=== PATIENT | female | born 1980 | race Hispanic/Latino ===

== ENCOUNTER 2022-01-05 22:58 | Emergency (ER) | payer SELFPAY ==
--- OUTSIDE RECORDS SUMMARY | 2022-01-05 23:04 | XMS REPORT | Continuity of Care Document ---
:[address] [facility] t Address [address] [place] [address] Care Team Providers Name Role Phone LIZBETH HOLLOWAY Primary Care Physician Unavailable NUZHAT LEO Attending Clinician Unavailable Nuzhat Leo DO Attending Clinician CARLITA BERNABE Attending Clinician Unavailable Carlita Bernabe DO Attending Clinician MIL CASTRO Attending Clinician Unavailable Mil Chambers Attending Clinician Zack Jensen Attending Clinician ZACK CHAPMAN Attending Clinician Unavailable Heaven Weinstein Attending Clinician HEAVEN ENRIQUEZ Attending Clinician Unavailable Doctor Unassigned, [place] Attending Clinician Unavailable Aminata Lujan Attending Clinician NUZHAT LEO Admitting Clinician Unavailable MIL CASTRO Admitting Clinician Unavailable Payers Payer Name Policy Type Policy Number Effective Date Expiration Date S edmund R [id number] 2021 00:00:00 MEDICAID PENDING PENDING 2019 00:00:00 Problems Condition Condition Condition Status Onset Resolution Last Treating Co mments Source Name Details Category Date Date Treatment Clinician Date Obesity Obesity Disease Active Univers (BMI (BMI 1-27 ity of 30-39.9) 30-39.9) 00:00: [place] 00 Medical Branch Allergies, Adverse Reactions, Alerts Allergy Allergy Status Severity Reaction(s) Onset Inactive Treating Comm ents Source Name Type Date Date Clinician Codeine Propensi Active Unknown - 2018-03 Univ ers ty to See comments 2-26 ity of adverse 00:00: [place] reaction 00 Medical s Branch CODEINE DRUG Active Unknown-Cmnt 2018-03 Uni vers INGREDI 2-26 ity of 00:00: [place] 00 Medical Branch Sulfa Propensi Active Anaphylaxis Uni vers (Sulfona ty to 4-26 ity of mide adverse 00:00: [place] Antibiot reaction 00 Medica l ics) s Branch SULFA Drug Active Anaphylaxis Unive rs (SULFONA Class 4-26 ity of MIDE 00:00: [place] ANTIBIOT 00 Medical ICS) Branch Sulfa Propensi Active Anaphylaxis Uni vers (Sulfona ty to 4-26 ity of mide adverse 00:00: [place] Antibiot reaction 00 Medica l ics) s Branch Social History Social Habit Start Date Stop Date Quantity Comments Source Exposure to 2021-11-19 2021-11-29 Not sure [facility] SARS-CoV-2 (event) 00:00:00 09:24:00 Medica l Branch Sex [birth year] [facility] 00:00:00 00:00:00 Medical Branch Smoking Status Start Date Stop Date Source Tobacco smoking consumption [facility] Medical unknown Branch Medications Ordered Filled Start Stop Current Ordering Indication Dosage Frequency Signature Comments Components Source Medication Medication Date Date Medication? Clinician (SIG) Name Name methylPREDN Yes [id number] Take by Univers ISolone 11-29 9107 mouth ity of (MEDROL, 00:00: SEE-INSTRU [place] as ODILON,) 4 mg 00 CTIONS. Medica l tablets follow Branch package directions naproxen Yes [id number] 550mg Take 1 Univers sodium 11-2907 tablet by ity of (ANAPROX 00:00: mouth in [place] DS) 550 mg 00 the Medical tablet morning Branch and 1 tablet in the evening. Take with meals. lisinopriL 2022-0 2022- No 10mg 10 mg, Univ ers (PRINIVIL,Z 11-03 Oral, ity of ESTRIL) 12:45: 11:35 ONCE, 1 [place] tablet 10 00 :00 dose, On Medica l mg Sun Branch 11/03/21 at 0745, Routine FLUTICASONE 2021- No Use in Uni vers PROPIONATE 11-03 each ity of (FLONASE 06:33: 00:[place]ril[place] NASAL) 07 :00 Medical Branch lisinopriL 2021- Yes [id number] 10mg Take 1 Univers 10 mg 11-03 tablet by ity of tablet 00:00: 04:59 mouth at [place] 00 :00 bedtime Medical for 30 Branch days. lisinopriL 2021- Yes [id number] 10mg Take 1 Univers 10 mg 11-03 tablet by ity of tablet 00:00: 04:59 [facility] [place] [facility] iopamidol 2021- No [id number] 100mL 100 mL, Univers (ISOVUE 06-21-08 Intravenou ity o f 370-500 mL) 07:15: 06:07 s, ONCE, 1 [place] injection 00 :00 dose, On Medica l 100 mL Thu06/21/21 Branch at 0215, Routine penicillin 2021- No 1.210 1.2 Unive rs g 06-21 04-08 Million ity of benzathine 06:30: 06:18 [place], [place] (BICILLIN 00 :00 Intramuscu Medi kleber L-A) lar, ONCE, Branch injection 1 dose, On 1.2 Million Thu06/21/21 Units at 0130, DIANE
Re ason for Anti-Infec tive: Documented Infection< br>Documen jameson Infection Site: Skin / Soft Tissue
Duration of Therapy: 10 days NaCl 0.9% 2021- No 1000mL at 999 Uni vers (NS) bolus 06-21 04-08 mL/hr, ity of infusion 06:30: 07:29 1,000 mL, [place] as 1,000 mL 00 :00 IV Medical Infusion, Branch ONCE, 1 dose, On Thu06/21/21 at 0130, DIANE dexamethaso No 10mg 10 mg, Uni vers ne sod phos 06-21 Slow IV ity of PF 06:30: 05:31 Push, [place] injection 00 :00 ONCE, 1 Medical 10 mg dose, On Branch Thu06/21/21 at 0130, 1 mL ketorolac 2021- No 30mg 30 mg, Unive rs (TORADOL) 06-21 Slow IV ity of injection 06:30: 05:31 Push, [place] 30 mg 00 :00 ONCE, 1 Medical dose, On Branch Thu06/21/21 at 0130, Routine
construction crew member approving Restricted medication : MIL CASTRO maalox:diph No 15mL 15 mL, Uni vers enhydrAMINE 06-21 Oral, ity of :lidocaine 06:30: 05:32 ONCE, 1 [place] as 2 % viscous 00 :00 dose, On [facility] kleber 1:1:1 Thu06/21/21 Branch (FIRST-MOUT at 0130, [facility]) Routine oral suspension 15 mL cefTRIAXone No 1000mg 1,000 mg, Univers (ROCEPHIN) 08-02 IV ity of 1,000 mg in 23:30: 23:11 [place], [place] NaCl 0.9% 00 :00 ONCE, 1 Medical (NS) 50 mL dose, [facility] Bran ch MINI-BAG 08/02/20 at 1830, 50 mL
Reas on for Anti-Infec tive: Empiric Therapy for Suspected Infection< br>Empiric Therapy Site: Urine
D uration of therapy: 72 hours NaCl 0.9% 2020- No 1000mL at 999 Uni vers (NS) bolus 5- 05-20 mL/hr, ity of infusion 20:45: 23:20 1,000 mL, [place] as 1,000 mL 00 :00 IV Medical Infusion, Branch ONCE, 1 dose, [place] 08/02/20 at 1545, STAT cephALEXin 2020- No [id number] 500mg Take 1 Univers (KEFLEX) 08-02 capsule by ity of 500 mg 00:00: 04:59 mouth 3 [place] capsule 00 :00 (three) Medical times Branch daily for 7 days. butalbital- 2019-03 Yes [id number] 1{tbl} Take 1 Univers acetaminoph 2-18 tablet by ity of en-caff 00:00: mouth [place] 50-325-40 00 every 6 Medical mg tablet (six) Branch hours as needed for Pain (scale 7-10). butalbital- 2019-03 Yes [id number] 1{tbl} Take 1 Univers acetaminoph 2-18 tablet by ity of en-caff 00:00: mouth [place] 50-325-40 00 every 6 Medical mg tablet (six) Branch hours as needed for Pain (scale 7-10). butalbital- 2019-03 Yes [id number] 1{tbl} Take 1 Univers acetaminoph 2-18 tablet by ity of en-caff 00:00: mouth [place] 50-325-40 00 every 6 Medical mg tablet (six) Branch hours as needed for Pain (scale 7-10). butalbital- 2019-03 No [id number] 1{tbl} Take 1 Univers acetaminoph 2-18 08-21 tablet by it y of en-caff 00:00: 00:00 mouth [place] 50-325-40 00 :00 every 6 Medical mg tablet (six) Branch hours as needed for Pain (scale 7-10). diphenhydrA 2019-03 2020- No [id number] 25mg 25 mg, Univers MINE 0-12 10-12 Slow IV ity of (BENADRYL) 16:00: 15:00 Push, [place] injection 00 :00 ONCE, 1 Medical 25 mg dose, [facility] Branch 12/26/19 at 1100, STAT metoclopram 2019-03 2020- No [id number] 10mg 10 mg, Univers dash HCl 0-12 10-12 Slow IV ity of (REGLAN) 16:00: 14:59 Push, [place] injection 00 :00 ONCE, 1 Medical 10 mg dose, [facility] Branch 12/26/19 at 1100, DIANE lisinopriL 2019-03 Yes [id number] 10mg Take 1 U nivers 10 mg 0-12 tablet by ity of tablet 00:00: mouth at [place] 00 bedtime. Medical Branch lisinopriL 2019-03 Yes [id number] 10mg Take 1 U nivers 10 mg 0-12 tablet by ity of tablet 00:00: mouth at [place] 00 bedtime. Medical Branch lisinopriL 2019-03 Yes [id number] 10mg Take 1 U nivers 10 mg 0-12 tablet by ity of tablet 00:00: mouth at [place] 00 bedtime. Medical Branch lisinopriL 2019-03 Yes [id number] 10mg Take 1 U nivers 10 mg 0-12 tablet by ity of tablet 00:00: mouth at [place] 00 bedtime. Medical Branch lisinopriL 2019-03- No [id number] 10mg Take 1 Univers 10 mg 0-12 08-21 tablet by ity of tablet 00:00: 00:00 mouth at [place] 00 :00 bedtime. [facility] Branch ondansetron 2019- No 4mg 4 mg, Slow Univers (ZOFRAN 10-12 IV Push, ity of (PF)) 03:00: 01:47 ONCE, 1 [place] injection 4 00 :00 dose, Thu Med ical mg 10/12/19 at Branch 2200, DIANE cefTRIAXone No 1000mg 1,000 mg, Univers (ROCEPHIN) 10-12 IV ity of 1,000 mg in 02:15: 01:55 [place], [place] NaCl 0.9% 00 :00 ONCE, 1 Medical (NS) 50 mL dose, [facility] ch MINI-BAG 10/12/19 at 2115, 50 mL
Reas on for Anti-Infec tive: Documented Infection< br>Documen jameson Infection Site: Urine
D uration of Therapy: Other (see Comments) FENTanyl PF 2019- No 50ug 50 mcg, Un haley (SUBLIMAZE 10-12 Slow IV ity o f (PF)) 02:15: 01:24 Push, [place] injection 00 :00 ONCE, 1 Medical 50 mcg dose, [facility] 10/12/19 at 2115, Routine ketorolac 2019- No 15mg 15 mg, Unive rs (TORADOL) 10-12 Slow IV ity of injection 00:15: 23:27 Push, [place] 15 mg 00 :00 ONCE, 1 Medical dose, [facility] 10/12/19 at 1915, DIANE
Fa culty member approving Restricted medication : HEAVEN ENRIQUEZ tamsulosin 2020-0 Yes [id number] .4mg Take 1 U nivers 0.4 mg 24 7-29 capsule by ity of hr capsule 00:00: mouth at [place] 00 bedtime. Medical Branch traMADol 50 2020-0 Yes [id number] 50mg Take 1 Univ ers mg tablet 7-29 tablet by ity o f 00:00: mouth [place] 00 every 6 Medical (six) Branch hours as needed for Pain (scale 7-10). Indication s: acute pain ondansetron 2020-0 Yes [id number] 4mg Take 1 Univers (ZOFRAN 7-29 tablet by ity of ODT) 4 mg 00:00: mouth [place] disintegrat 00 every 8 Medic al ing tablet (eight) Branch hours as needed for Nausea and Vomiting (N/V). naproxen 2020-0 Yes [id number] 500mg Take 1 Un haley 500 mg 7-29 tablet by ity of tablet 00:00: mouth 2 [place] 00 (two) Medical times Branch daily with meals. tamsulosin 2020-0 Yes [id number] .4mg Take 1 U nivers 0.4 mg 24 7-29 capsule by ity of hr capsule 00:00: mouth at [place] 00 bedtime. Medical Branch traMADol 50 2020-0 Yes [id number] 50mg Take 1 Univ ers mg tablet 7-29 tablet by ity o f 00:00: mouth [place] 00 every 6 Medical (six) Branch hours as needed for Pain (scale 7-10). Indication s: acute pain ondansetron 2020-0 Yes [id number] 4mg Take 1 Univers (ZOFRAN 7-29 tablet by ity of ODT) 4 mg 00:00: mouth [place] disintegrat 00 every 8 Medic al ing tablet (eight) Branch hours as needed for Nausea and Vomiting (N/V). naproxen 2020-0 Yes [id number] 500mg Take 1 Un haley 500 mg 7-29 tablet by ity of tablet 00:00: mouth 2 [place] 00 (two) Medical times Branch daily with meals. tamsulosin 2020-0 Yes [id number] .4mg Take 1 U nivers 0.4 mg 24 7-29 capsule by ity of hr capsule 00:00: mouth at [place] 00 bedtime. Medical Branch traMADol 50 2020-0 Yes [id number] 50mg Take 1 Univ ers mg tablet 7-29 tablet by ity o f 00:00: mouth [place] 00 every 6 Medical (six) Branch hours as needed for Pain (scale 7-10). Indication s: acute pain ondansetron 2020-0 Yes [id number] 4mg Take 1 Univers (ZOFRAN 7-29 tablet by ity of ODT) 4 mg 00:00: mouth [place] disintegrat 00 every 8 Medic al ing tablet (eight) Branch hours as needed for Nausea and Vomiting (N/V). naproxen 2020-0 Yes [id number] 500mg Take 1 Un haley 500 mg 7-29 tablet by ity of tablet 00:00: mouth 2 [place] 00 (two) Medical times Branch daily with meals. tamsulosin 2020-0 Yes [id number] .4mg Take 1 U nivers 0.4 mg 24 7-29 capsule by ity of hr capsule 00:00: mouth at [place] 00 bedtime. Medical Branch traMADol 50 2020-0 Yes [id number] 50mg Take 1 Univ ers mg tablet 7-29 tablet by ity o f 00:00: mouth [place] 00 every 6 Medical (six) Branch hours as needed for Pain (scale 7-10). Indication s: acute pain ondansetron 2020-0 Yes [id number] 4mg Take 1 Univers (ZOFRAN 7-29 tablet by ity of ODT) 4 mg 00:00: mouth [place] disintegrat 00 every 8 Medic al ing tablet (eight) Branch hours as needed for Nausea and Vomiting (N/V). naproxen 2020-0 Yes [id number] 500mg Take 1 Un haley 500 mg 7-29 tablet by ity of tablet 00:00: mouth 2 [place] 00 (two) Medical times Branch daily with meals. tamsulosin 2020-0 Yes [id number] .4mg Take 1 U nivers 0.4 mg 24 7-29 capsule by ity of hr capsule 00:00: mouth at [place] 00 bedtime. Medical Branch traMADol 50 2020-0 Yes [id number] 50mg Take 1 Univ ers mg tablet 7-29 tablet by ity o f 00:00: mouth [place] 00 every 6 Medical (six) Branch hours as needed for Pain (scale 7-10). Indication s: acute pain ondansetron 2020-0 Yes [id number] 4mg Take 1 Univers (ZOFRAN 7-29 tablet by ity of ODT) 4 mg 00:00: mouth [place] disintegrat 00 every 8 Medic al ing tablet (eight) Branch hours as needed for Nausea and Vomiting (N/V). naproxen 2019- Yes [id number] 500mg Take 1 Un haley 500 mg - tablet by ity of tablet 00:00: mouth 2 [place] 00 (two) Medical times Branch daily with meals. tamsulosin 2021- No [id number] .4mg Take 1 Univers 0.4 mg 24 10-11 capsule by ity of hr capsule 00:00: 00:00 mouth at [place] 00 :00 bedtime. Medical Branch traMADol 50 2019-2021- No [id number] 50mg Take 1 Uni vers mg tablet 10-11 tablet by ity of 00:00: 00:00 mouth [place] 00 :00 every 6 Medical (six) Branch hours as needed for Pain (scale 7-10). Indication s: acute pain ondansetron 2019-2021- No [id number] 4mg Take 1 Univers (ZOFRAN 10-11- tablet by ity of ODT) 4 mg 00:00: 00:00 mouth [place] disintegrat 00 :00 every 8 Medic al ing tablet (eight) Branch hours as needed for Nausea and Vomiting (N/V). naproxen 2021- No [id number] 500mg Take 1 U nivers 500 mg 10-11 tablet by ity of tablet 00:00: 00:00 mouth 2 [place] 00 :00 (two) Medical times Branch daily with meals. cephALEXin 2019- No [id number] 500mg Take 1 Univers 500 mg 10-11- capsule by ity of capsule 00:00: 04:59 mouth 4 [place] 00 :00 (four) Medical times Branch daily for 7 days. amoxicillin 2019-2019- No [id number] 875mg Take 1 Univers 875 mg 07-14 tablet by ity of tablet 00:00: 04:59 mouth 2 [place] 00 :00 (two) Medical times Branch daily for 10 days. predniSONE 2019- 2020- No [id number] 20mg Take 1 Univers 20 mg 07-14 [id number] tablet by ity of tablet 00:00: 04:59 mouth 2 [place] 00 :00 (two) Medical times Branch daily for 5 days. traMADol 2018-03 Yes [id number] 50mg Take 1 Univers (ULTRAM) 50 2-26 [id number] tablet by i ty of mg tablet 00:00: mouth [place] 00 every 8 Medical (eight) Branch hours as needed for Pain (scale 4-6). cyclobenzap 2018-03 Yes [id number] 5mg Take 1 Univers rine 5 mg 2-26 [id number] tablet by ity of tablet 00:00: mouth 3 [place] 00 (three) Medical times Branch daily. traMADol 2018-03 Yes [id number] 50mg Take 1 Univers (ULTRAM) 50 2-26 [id number] tablet by i ty of mg tablet 00:00: mouth [place] 00 every 8 Medical (eight) Branch hours as needed for Pain (scale 4-6). cyclobenzap 2018-03 Yes [id number] 5mg Take 1 Univers rine 5 mg 2-26 [id number] tablet by ity of tablet 00:00: mouth 3 [place] 00 (three) Medical times Branch daily. traMADol 2018-03 Yes [id number] 50mg Take 1 Univers (ULTRAM) 50 2-26 [id number] tablet by i ty of mg tablet 00:00: mouth [place] 00 every 8 Medical (eight) Branch hours as needed for Pain (scale 4-6). cyclobenzap 2018-03 Yes [id number] 5mg Take 1 Univers rine 5 mg 2-26 [id number] tablet by ity of tablet 00:00: mouth 3 00 (three) Medical times Branch daily. traMADol 2018-03 Yes [id number] 50mg Take 1 Univers (ULTRAM) 50 2-26 [id number] tablet by i ty of mg tablet 00:00: mouth [place] 00 every 8 Medical (eight) Branch hours as needed for Pain (scale 4-6). cyclobenzap 2018-03 Yes [id number] 5mg Take 1 Univers rine 5 mg 2-26 [id number] tablet by ity of tablet 00:00: mouth 3 [place] 00 (three) Medical times Branch daily. traMADol 2018-03 Yes [id number] 50mg Take 1 Univers (ULTRAM) 50 2-26 [id number] tablet by i ty of mg tablet 00:00: mouth [place] 00 every 8 Medical (eight) Branch hours as needed for Pain (scale 4-6). cyclobenzap 2018-03 Yes [id number] 5mg Take 1 Univers rine 5 mg 2-26 [id number] tablet by ity of tablet 00:00: mouth 3 [place] 00 (three) Medical times Branch daily. traMADol 2018-03 Yes [id number] 50mg Take 1 Univers (ULTRAM) 50 2-26 [id number] tablet by i ty of mg tablet 00:00: mouth [place] 00 every 8 Medical (eight) Branch hours as needed for Pain (scale 4-6). cyclobenzap 2018-03 Yes [id number] 5mg Take 1 Univers rine 5 mg 2-26 [id number] tablet by ity of tablet 00:00: mouth 3 [place] 00 (three) Medical times Branch daily. traMADol 2018-03 Yes [id number] 50mg Take 1 Univers (ULTRAM) 50 2-26 [id number] tablet by i ty of mg tablet 00:00: mouth [place] 00 every 8 Medical (eight) Branch hours as needed for Pain (scale 4-6). cyclobenzap 2018-03 Yes [id number] 5mg Take 1 Univers rine 5 mg 2-26 [id number] tablet by ity of tablet 00:00: mouth 3 [place] 00 (three) Medical times Branch daily. traMADol 2018-03 Yes [id number] 50mg Take 1 Univers (ULTRAM) 50 2-26 [id number] tablet by i ty of mg tablet 00:00: mouth [place] 00 every 8 Medical (eight) Branch hours as needed for Pain (scale 4-6). cyclobenzap 2018-03 Yes [id number] 5mg Take 1 Univers rine 5 mg 2-26 [id number] tablet by ity of tablet 00:00: mouth 3 [place] 00 (three) Medical times Branch daily. traMADol 2018-03- No [id number] 50mg Take 1 Univers (ULTRAM) 50 2-26 08-21 [id number] tablet by ity of mg tablet 00:00: 00:00 mouth [place] 00 :00 every 8 Medical (eight) Branch hours as needed for Pain (scale 4-6). cyclobenzap 2018-03- No [id number] 5mg Take 1 Univers rine 5 mg 2-26 08-21 [id number] tablet by it y of tablet 00:00: 00:00 mouth 3 [place] 00 :00 (three) Medical times Branch daily. chlorphenir 2019-0 Yes [id number] 4mg Take 1 Univers amine 1-10 tablet by ity of (CHLORTABS) 00:00: mouth [place] 4 mg tablet 00 every 6 Medic al (six) Branch hours as needed for Allergies. chlorphenir 2019-0 Yes [id number] 4mg Take 1 Univers amine 1-10 tablet by ity of (CHLORTABS) 00:00: mouth [place] 4 mg tablet 00 every 6 Medic al (six) Branch hours as needed for Allergies. chlorphenir 2019-0 Yes [id number] 4mg Take 1 Univers amine 1-10 tablet by ity of (CHLORTABS) 00:00: mouth [place] 4 mg tablet 00 every 6 Medic al (six) Branch hours as needed for Allergies. chlorphenir 2019-0 Yes [id number] 4mg Take 1 Univers amine 1-10 tablet by ity of (CHLORTABS) 00:00: mouth [place] 4 mg tablet 00 every 6 Medic al (six) Branch hours as needed for Allergies. chlorphenir 2019-0 Yes [id number] 4mg Take 1 Univers amine 1-10 tablet by ity of (CHLORTABS) 00:00: mouth [place] 4 mg tablet 00 every 6 Medic al (six) Branch hours as needed for Allergies. chlorphenir 2019-0 Yes [id number] 4mg Take 1 Univers amine 1-10 tablet by ity of (CHLORTABS) 00:00: mouth [place] 4 mg tablet 00 every 6 Medic al (six) Branch hours as needed for Allergies. chlorphenir 2019-0 Yes [id number] 4mg Take 1 Univers amine 1-10 tablet by ity of (CHLORTABS) 00:00: mouth [place] 4 mg tablet 00 every 6 Medic al (six) Branch hours as needed for Allergies. chlorphenir 2019-0 Yes [id number] 4mg Take 1 Univers amine 1-10 tablet by ity of (CHLORTABS) 00:00: mouth [place] 4 mg tablet 00 every 6 Medic al (six) Branch hours as needed for Allergies. chlorphenir 2019-0 2022- No [id number] 4mg Take 1 Univers amine 1-10 08-21 tablet by ity of (CHLORTABS) 00:00: 00:00 mouth [place] 4 mg tablet 00 :00 every 6 Medic al (six) Branch hours as needed for Allergies. tobramycin 2018-1 Yes 2[drp] Place 2 [place] 0.3 % 0-14 Drops in ity of ophthalmic 00:00: both eyes [place] drops 00 4 (four) Medical times Branch daily. Continue until you follow up with eye doctor. tobramycin 2017-03 Yes 2[drp] Place 2 [place] 0.3 % 0-14 Drops in ity of ophthalmic 00:00: both eyes [place] drops 00 4 (four) Medical times Branch daily. Continue until you follow up with eye doctor. tobramycin 2017-03 Yes 2[drp] Place 2 [place] 0.3 % 0-14 Drops in ity of ophthalmic 00:00: both eyes [place] drops 00 4 (four) Medical times Branch daily. Continue until you follow up with eye doctor. tobramycin 2017-03 Yes 2[drp] Place 2 [place] 0.3 % 0-14 Drops in ity of ophthalmic 00:00: both eyes [place] drops 00 4 (four) Medical times Branch daily. Continue until you follow up with eye doctor. tobramycin 2017-03 Yes 2[drp] Place 2 [place] 0.3 % 0-14 Drops in ity of ophthalmic 00:00: both eyes [place] drops 00 4 (four) Medical times Branch daily. Continue until you follow up with eye doctor. tobramycin 2017-03 Yes 2[drp] Place 2 [place] 0.3 % 0-14 Drops in ity of ophthalmic 00:00: both eyes [place] drops 00 4 (four) Medical times Branch daily. Continue until you follow up with eye doctor. tobramycin 2017-03 Yes 2[drp] Place 2 [place] 0.3 % 0-14 Drops in ity of ophthalmic 00:00: both eyes [place] drops 00 4 (four) Medical times Branch daily. Continue until you follow up with eye doctor. tobramycin 2017-03 Yes 2[drp] Place 2 [place] 0.3 % 0-14 Drops in ity of ophthalmic 00:00: both eyes [place] drops 00 4 (four) Medical times Branch daily. Continue until you follow up with eye doctor. tobramycin 2017-03- No 2[drp] Place 2 U nivers 0.3 % 0-14 08-21 Drops in ity of ophthalmic 00:00: 00:00 both eyes [place] drops 00 :00 4 (four) Medical times Branch daily. Continue until you follow up with eye doctor. FLUTICASONE 2016-03 Yes Use in Univ ers PROPIONATE 0-24 each ity of (FLONASE 21:15: nostril. [place] NASAL) 56 Medical Branch FLUTICASONE 2016-03 Yes Use in Univ ers PROPIONATE 0-24 each ity of (FLONASE 21:15: nostril. [place] NASAL) 56 Medical Branch FLUTICASONE 2016-03 Yes Use in Univ ers PROPIONATE 0-24 each ity of (FLONASE 21:15: nostril. [place] NASAL) 56 Medical Branch FLUTICASONE 2016-03 Yes Use in Univ ers PROPIONATE 0-24 each ity of (FLONASE 21:15: nostril. [place] NASAL) 56 Medical Branch FLUTICASONE 2016-03 Yes Use in Univ ers PROPIONATE 0-24 each ity of (FLONASE 21:15: nostril. [place] NASAL) 56 Medical Branch FLUTICASONE 2016-03 Yes Use in Univ ers PROPIONATE 0-24 each ity of (FLONASE 21:15: nostril. [place] NASAL) 56 Medical Branch FLUTICASONE 2016-03 Yes Use in Univ ers PROPIONATE 0-24 each ity of (FLONASE 21:15: nostril. [place] NASAL) 56 Medical Branch FLUTICASONE 2016-03 Yes Use in Univ ers PROPIONATE 0-24 each ity of (FLONASE 16:15: nostril. [place] NASAL) 56 Medical Branch phenazopyri 2017- Yes 200mg Take 1 Uni vers dine 200 mg 1-27 tablet by ity of tablet 00:00: mouth 3 (three) Medical times Branch daily. phenazopyri 2017-0 Yes 200mg Take 1 Uni vers dine 200 mg 1-27 tablet by ity of tablet 00:00: mouth 3 (three) Medical times Branch daily. phenazopyri 2017-0 Yes 200mg Take 1 Uni vers dine 200 mg 1-27 tablet by ity of tablet 00:00: mouth 3 00 (three) Medical times Branch daily. phenazopyri 2017-0 Yes 200mg Take 1 Uni vers dine 200 mg 1-27 tablet by ity of tablet 00:00: mouth 3 [place] 00 (three) Medical times Branch daily. phenazopyri 2017-0 Yes 200mg Take 1 Uni vers dine 200 mg 1-27 tablet by ity of tablet 00:00: mouth 3 [place] 00 (three) Medical times Branch daily. phenazopyri 2017-0 Yes 200mg Take 1 Uni vers dine 200 mg 1-27 tablet by ity of tablet 00:00: mouth 3 [place] 00 (three) Medical times Branch daily. phenazopyri 2017-0 Yes 200mg Take 1 Uni vers dine 200 mg 1-27 tablet by ity of tablet 00:00: mouth 3 [place] 00 (three) Medical times Branch daily. phenazopyri 2017-0 Yes 200mg Take 1 Uni vers dine 200 mg 1-27 tablet by ity of tablet 00:00: mouth 3 [place] 00 (three) Medical times Branch daily. phenazopyri 2017-2021- No 200mg Take 1 Un [facility]aley dine 200 mg 1-27 08-21 tablet by it y of tablet 00:00: 00:00 mouth 3 [place] 00 :00 (three) Medical times Branch daily. albuterol Yes 2.5mg Inhale 3 Uni vers (PROVENTIL) 4-26 mL every 4 it y of 2.5 mg /3 00:00: (four) [place] mL (0.083 00 hours. May Medi kleber %) also Branch nebulizer nebulize solution one extra every 6 hours. benzonatate 2015-0 Yes 100mg Take 1 Uni vers (TESSALON 4-26 capsule by ity of PERLSafeway Safety Step) 100 00:00: mouth 3 [place] as mg capsule 00 (three) Medica l times Branch daily as needed for Cough. albuterol Yes 2.5mg Inhale 3 Uni vers (PROVENTIL) 4-26 mL every 4 it y of 2.5 mg /3 00:00: (four) [place] mL (0.083 00 hours. May Medi kleber %) also Branch nebulizer nebulize solution one extra every 6 hours. benzonatate 2015-0 Yes 100mg Take 1 Uni vers (TESSALON 4-26 capsule by ity of PERLES) 100 00:00: mouth 3 [place] mg capsule 00 (three) Medica l times Branch daily as needed for Cough. albuterol 2016-0 Yes 2.5mg Inhale 3 Uni vers (PROVENTIL) 4-26 mL every 4 it y of 2.5 mg /3 00:00: (four) [place] mL (0.083 00 hours. May Medi kleber %) also Branch nebulizer nebulize solution one extra every 6 hours. benzonatate 0 Yes 100mg Take 1 Uni vers (TESSALON 4-26 capsule by [email or web address] of Dizmo) 100 00:00: mouth 3 [place] as mg capsule 00 (three) Medica l times Branch daily as needed for Cough. albuterol 0 Yes 2.5mg Inhale 3 Uni vers (PROVENTIL) 4-26 mL every 4 it y of 2.5 mg /3 00:00: (four) [place] mL (0.083 00 hours. May Medi kleber %) also Branch nebulizer nebulize solution one extra every 6 hours. benzonatate 0 Yes 100mg Take 1 Uni vers (TESSALON 4-26 capsule by Virgance) 100 00:00: mouth 3 [place] as mg capsule 00 (three) Medica l times Branch daily as needed for Cough. albuterol 0 Yes 2.5mg Inhale 3 Uni vers (PROVENTIL) 4-26 mL every 4 it y of 2.5 mg /3 00:00: (four) [place] mL (0.083 00 hours. May Medi kleber %) also Branch nebulizer nebulize solution one extra every 6 hours. benzonatate 0 Yes 100mg Take 1 Uni vers (TESSALON 4-26 capsule by [employer] of Dizmo) 100 00:00: mouth 3 [place] as mg capsule 00 (three) Medica l times Branch daily as needed for Cough. albuterol 0 Yes 2.5mg Inhale 3 Uni vers (PROVENTIL) 4-26 mL every 4 it y of 2.5 mg /3 00:00: (four) [place] mL (0.083 00 hours. May Medi kleber %) also Branch nebulizer nebulize solution one extra every 6 hours. benzonatate 2015-0 Yes 100mg Take 1 Uni vers (TESSALON 4-26 capsule by [email or web address] of Dizmo) 100 00:00: mouth 3 [place] as mg capsule 00 (three) Medica l times Branch daily as needed for Cough. albuterol 0 Yes 2.5mg Inhale 3 Uni vers (PROVENTIL) 4-26 mL every 4 it y of 2.5 mg /3 00:00: (four) [place] mL (0.083 00 hours. May Medi kleber %) also Branch nebulizer nebulize solution one extra every 6 hours. benzonatate Yes 100mg Take 1 Uni vers (TESSALON 4-26 capsule by itBenesight) 100 00:00: mouth 3 [place] as mg capsule 00 (three) Medica l times Branch daily as needed for Cough. albuterol Yes 2.5mg Inhale 3 Uni vers (PROVENTIL) 4-26 mL every 4 it y of 2.5 mg /3 00:00: (four) [place] mL (0.083 00 hours. May Medi kleber %) also Branch nebulizer nebulize solution one extra every 6 hours. benzonatate Yes 100mg Take 1 Uni vers (TESSALON 4-26 capsule by itBenesight) 100 00:00: mouth 3 [place] as mg capsule 00 (three) Medica l times Branch daily as needed for Cough. benzonatate 2021- No 100mg Take 1 Un haley (TESSALON 4-26 08-21 capsule by itBenesight) 100 00:00: 00:00 mouth 3 [place] mg capsule 00 :00 (three) Medica l times Branch daily as needed for Cough. albuterol 2021- No 2.5mg Inhale 3 Un haley (PROVENTIL) 4-26 08-21 mL every 4 i ty of 2.5 mg /3 00:00: 00:00 (four) [place] mL (0.083 00 :00 hours. May Medi kleber %) also Branch nebulizer nebulize solution one extra every 6 hours. Vital Signs Vital Name Observation Time Observation Value Comments Source Systolic blood 2021-11-29 14:25:00 130 [facility] Diastolic blood 2021-11-29 14:25:00 78 [facility]Hg[facility] Heart rate 2021-11-29 14:25:00 81 /min [facility] Body temperature 2021-11-29 14:25:00 36.5 Padmini [facility] [place] [facility] Respiratory rate 2021-11-29 14:25:00 22 /min [facility] [place] [facility] Body height 2021-11-29 14:25:00 157.5 cm [facility] [place] [facility] Body weight 2021-11-29 14:25:00 99.791 kg [facility] [place] [facility] BMI 2021-11-29 14:25:00 40.24 kg/m2 [facility] [place] [facility] Oxygen saturation in 2021-11-29 14:25:00 99 /min [facility] of Arterial blood by [place] Desura kleber Pulse oximetry Branch Systolic blood 2021-11-03 11:27:00 154 mm[Hg] [facility]iver [facility] [place] [facility] Diastolic blood 2021-11-03 11:27:00 111 mm[Hg] Unive [facility] [place] [facility] Heart rate 2021-11-03 11:27:00 90 /min [facility] [place] [facility] Body temperature 2021-11-03 11:27:00 36.72 Padmini [facility] [place] [facility] Respiratory rate 2021-11-03 11:27:00 20 /min [facility] [place] [facility] Body height 2021-11-03 11:27:00 157.5 cm [facility] [place] [facility] Body weight 2021-11-03 11:27:00 99.791 kg [facility] [place] [facility] BMI 2021-11-03 11:27:00 40.24 kg/m2 [facility] [place] [facility] Oxygen saturation in 2021-11-03 11:27:00 96 /min University of Arterial blood by [place] Desura kleber Pulse oximetry Branch Systolic blood 2021-06-21 07:00:00 102 mm[Hg] [facility]iver [facility] [place] [facility] Diastolic blood 2021-06-21 07:00:00 70 mm[Hg] Unive [facility] [place] [facility] Heart rate 2021-06-21 07:00:00 83 /min [facility] [place] [facility] Body temperature 2021-06-21 07:00:00 36.22 Padmini Univ [facility] [place] [facility] Respiratory rate 2021-06-21 07:00:00 16 /min Univ [facility] [place] [facility] Oxygen saturation in 2021-06-21 07:00:00 95 /min University of Arterial blood by [facility] kleber Pulse oximetry Branch Body height 2021-06-21 04:32:00 157.5 cm [facility] [place] [facility] Body weight 2021-06-21 04:32:00 90.719 kg [facility] [place] [facility] BMI 2021-06-21 04:32:00 36.58 kg/m2 [facility] [place] [facility] Systolic blood 2020-08-02 22:00:00 142 mm[Hg] [facility] [place] [facility] Diastolic blood 2020-08-02 22:00:00 104 mm[Hg] [facility]ive [facility] [place] [facility] Heart rate 2020-08-02 22:00:00 86 /min [facility] [place] [facility] Respiratory rate 2020-08-02 22:00:00 20 /min Univ [facility] [place] [facility] Oxygen saturation in 2020-08-02 22:00:00 100 /min University of Arterial blood by [facility] Pulse oximetry Branch Body temperature 2020-08-02 20:39:00 37.22 Padmini Univ [facility] [place] [facility] Body height 2020-08-02 20:39:00 157.5 cm [facility] [place] [facility] Body weight 2020-08-02 20:39:00 104.327 kg [facility] [place] [facility] BMI 2020-08-02 20:39:00 42.07 kg/m2 [facility] [place] [facility] Systolic blood 2020-03-03 01:11:00 137 mm[Hg] [facility] [place] [facility] Diastolic blood 2020-03-03 01:11:00 90 mm[Hg] Unive [facility] [place] [facility] Heart rate 2020-03-03 01:11:00 87 /min [facility] [place] [facility] Body temperature 2020-03-03 01:11:00 37.06 Padmini Univ [facility] [place] [facility] Respiratory rate 2020-03-03 01:11:00 16 /min Univ [facility] [place] [facility] Body weight 2020-03-03 01:11:00 104.327 kg [facility] [place] [facility] BMI 2020-03-03 01:11:00 40.74 kg/m2 [facility] [place] [facility] Oxygen saturation in 2020-03-03 01:11:00 98 /min University of Arterial blood by [facility] Pulse oximetry Branch Systolic blood 2019-12-26 15:00:00 154 mm[Hg] [facility] [place] [facility] Diastolic blood 2019-12-26 15:00:00 109 mm[Hg] [facility]ive [facility] [place] [facility] Heart rate 2019-12-26 15:00:00 63 /min [facility] [place] [facility] Respiratory rate 2019-12-26 15:00:00 20 /min Univ [facility] [place] [facility] [place] Oxygen saturation in 2019-12-26 15:00:00 95 /min University of Arterial blood by [facility] Pulse oximetry Branch Body temperature 2019-12-26 14:05:00 37 Padmini [facility] [place] [facility] [place] Body weight 2019-12-26 14:05:00 99.791 kg [facility] [place] [facility] [place] BMI 2019-12-26 14:05:00 38.97 kg/m2 [facility] [place] [facility] Systolic blood 2019-10-13 02:00:00 143 mm[Hg] [facility] [place] [facility] [place] Diastolic blood 2019-10-13 02:00:00 84 mm[Hg] [facility] [place] [facility] [place] Heart rate 2019-10-13 02:00:00 77 /min [facility] [place] [facility] Respiratory rate 2019-10-13 02:00:00 18 /min Univ [facility] [place] [facility] Oxygen saturation in 2019-10-13 02:00:00 98 /min University of Arterial blood by [facility] Pulse oximetry Branch Body temperature 2019-10-12 23:08:00 37.56 Padmini [facility] ersity of [facility] Body height 2019-10-12 23:08:00 160 cm [facility] [place] [facility] [place] Body weight 2019-10-12 23:08:00 111.585 kg [facility] [place] [facility] BMI 2019-10-12 23:08:00 43.58 kg/m2 [facility] [place] [facility] Procedures Procedure Date / Time Performing Clinician Source Performed ED SPLINT APPLICATION 2021-11-29 15:24:05 Nuzhat Leo [facility] XR FOOT <3 VW LEFT 2021-11-29 14:51:21 Nuzhat Leo y [facility] CONSENT/REFUSAL FOR 2021-11-29 14:22:07 Doctor Unassigned, No Un [facility] DIAGNOSIS AND TREATMENT Name Medical Branch CONSENT/REFUSAL FOR 2021-11-03 11:24:14 Doctor Unassigned, No Un [facility] [place] DI[facility]REATMENT Name Medical Branch CT SOFT TISSUE NECK W 2021-06-21 06:09:24 Mil Castro Un [facility] [place] CONTRAST Medical [facility] POCT TEST 2021-06-21 05:42:00 Mil Castro [facility] [place] [facility] COMP. METABOLIC PANEL 2021-06-21 05:32:00 Mil Castro [facility] [place] ([id number]) Medical Branch CBC WITH DIFF 2021-06-21 05:32:00 Mil Castro [facility] [place] RAPID STREP SCREEN FOR 2021-06-21 04:58:00 Mil [facility] NOTICE OF PRIVACY 2021-06-21 04:25:48 Doctor Unassigned, No [facility] Name Medical Branch CONSENT/REFUSAL FOR 2021-06-21 04:24:53 Doctor Unassigned, No Un [facility] [place] DIAGNOSIS AND TREATMENT Name Medical Branch US FIRST 2020-08-02 21:44:47 Nuzhat Leo [facility] TRIMESTER LESS THAN 14 Medical B ranch WEEKS WITH TRANSVAGINAL COMP. METABOLIC PANEL 2020-08-02 21:15:00 Nuzhat Leo [facility] ([id number]) [facility] [place] TOTAL BETA HCG ASSAY 2020-08-02 21:15:00 Nuzhat Leo [facility] [place] CBC WITH DIFF 2020-08-02 21:15:00 Nuzhat Leo Paxton o [facility] Medical Branch URINALYSIS 2020-08-02 21:15:00 Nuzhat Leo [place] o [facility] POCT TEST 2020-08-02 21:15:00 Nuzhat Leo [facility] [place] NOTICE OF PRIVACY 2020-03-03 01:02:28 Doctor Unassigned, No [facility] Medical Branch CONSENT/REFUSAL FOR 2020-03-03 01:01:54 Doctor Unassigned, No Un [facility] [place] DIAGNOSIS AND TREATMENT Name Medical Branch XR CHEST 1 VW 2019-12-26 14:30:00 Singer [facility] LIPASE 2019-12-26 14:22:00 Singer [facility] MAGNESIUM 2019-12-26 14:22:00 Singer [facility] TROPONIN I 2019-12-26 14:22:00 Singer [facility] COMP. METABOLIC PANEL 2019-12-26 14:22:00 Singer [facility] ([id number]) Medical Branch CBC WITH DIFF 2019-12-26 14:22:00 Singer [facility] PROTHROMBIN TIME / INR 2019-12-26 14:22:00 Singer [facility] N-TERMINAL PRO-BNP 2019-12-26 14:22:00 Singer [facility] EKG-12 LEAD 2019-12-26 14:10:43 Singer [facility] CONSENT/REFUSAL FOR 2019-12-26 13:54:29 Doctor [facility]igned, [facility] Name [facility] Branch CT ABDOMEN PELVIS WO 2019-10-13 00:02:24 Heaven Enriquez [facility] COMP. METABOLIC PANEL 2019-10-12 23:23:00 Heaven Enriquez [facility] ([id number]) [facility] CBC WITH DIFF 2019-10-12 23:23:00 Heaven Enriquez [facility] URINALYSIS 2019-10-12 23:23:00 Heaven Enriquez [facility] POCT TEST 2019-10-12 23:23:00 Heaven Enriquez [facility] NOTICE OF PRIVACY 2019-10-12 23:03:08 Doctor Unassigned, No Univ [facility] PRACTICES Name Medical Branch CONSENT/REFUSAL FOR 2019-10-12 23:02:53 Doctor Unassigned, [facility]REATMENT Name Medical Branch Encounters Start End Encounter Admission Attending Care Care Encounter Source Date/Time Date/Time Type Type Clinicians Facility Department ID 2021-11-29 2021-11-29 Emergency X SINGER [facility] ERT [id number] Univers 09:27:00 10:29:00 NUZHAT itrosie [facility] 2021-11-29 2021-11-29 Emergency [facility] [id number] Univers 09:27:00 10:29:00 Nuzhat LARA [id number] i ty [facility] 4.2.7.2.686 [facility] [id number] [address] 2021-11-03 2021-11-03 Emergency [facility] [id number] Univers 06:32:00 06:58:00 CARLITA itrosie [facility] 2021-11-03 2021-11-03 Emergency [facility] [id number] Univers 06:32:00 06:58:00 Carlita Flores MARCO [id number] ity of [place] 4.2.7.2.686 [facility] [id number] [address] 2021-06-20 2021-06-21 Emergency [facility] [id number] Univers 23:37:00 02:37:00 [facility] [place] 2021-06-20 2021-06-21 Emergency [facility] [id number] Univers 23:37:00 02:37:00 Xiomarajaysonafshin Aziza LARA [id number] ity of [facility] [id number] [facility] [id number] [address] 2020-08-02 2020-08-02 Emergency [facility] [id number] Univers 15:40:00 18:21:00 Nuzhat Lara [id number] i ty of [place] [id number] [facility] [id number] [address] 2020-08-02 2020-08-02 Emergency X [facility] ERT [id number] Univers 15:23:00 15:23:00 ity [facility] 2020-03-02 2020-03-02 Emergency [facility] [id number] Univers 19:15:00 20:01:00 Zack Lara [id number] i ty of [place] 4.2.7.2.686 [facility] [id number] [address] 2020-03-02 2020-03-02 Emergency [facility] ERT [id number] Univers 19:15:00 19:15:00 ZACK ity of [facility] 2019-12-26 2019-12-26 Emergency [facility] [id number] Univers 08:57:00 11:20:00 Nuzhat Lara [id number] i ty of [place] [id number] [facility] [id number] [address] 2019-12-26 2019-12-26 Emergency X [facility] ERT [id number] Univers 08:57:00 08:57:00 ity of [facility] 2019-10-12 2019-10-12 Emergency [facility] [id number] Univers 18:10:58 21:31:00 Heaven Lara [id number] i ty of [place] [id number] [facility] [id number] [address] 2019-10-12 2019-10-12 Emergency X [facility] ERT [id number] Univers 18:10:58 18:10:58 HEAVEN ity of [facility] 2019-10-12 2019-10-12 Orders Doctor [facility] [id number] Univers 00:00:00 00:00:00 Only Unassigned, [place] [id number] ity of [place] 4.2.7.2.686 M[place] [id number] [address] 2019-07-19 2019-07-19 Telephone [facility] [id number] Univers 00:00:00 00:00:00 Aminata Day LEAGUE [id number] ity of [facility] 4.2.7.2.686 [facility]IC [id number] [facility] AND [address] [place] [address] E CLINIC 2019-07-15 2019-07-15 Patient Doctor CHAY [id number] Univers 00:00:00 00:00:00 Secure Msg Unassigned, [place] [id number] ity of [place] [facility] 4.2.7.2.686 Mina as [id number] [facility] 019 Branch Results Test Description Test Time Test Comments Results Result Comments Source CBC WITH DIFF 2021-06-21 06:27:34 Test Item Value Reference Range Interpretation Comme nts WBC (test code = 6690-2) See_Comment H [A utomated message] The system which ge nerated this result transmit jameson reference range: 4.30 - 1 1.10 10*3/?L. The reference r denita was not used to interpr et this result as normal/abnor mal. RBC (test code = 789-8) See_Comment L [Au tomated message] The system which ge nerated this result transmit jameson reference range: 3.93 - 5 .25 10*6/?L. The reference r denita was not used to interpr et this result as normal/abnor mal. HGB (test code = 718-7) 11.6 g/dL 11.6-15.0 HCT (test code = 4544-3) 34.4 % 35.7-45.2 L MCV (test code = 787-2) 88.7 fL 80.6-95.5 MCH (test code = 785-6) 29.9 pg 25.9-32.8 MCHC (test code = 786-4) 33.7 g/dL 31.6-35.1 RDW-SD (test code = 76127-5) 43.1 fL 39.0-49.9 RDW-CV (test code = 788-0) 13.3 % 12.0-15.5 PLT (test code = 777-3) See_Comment H [Au tomated message] The system which ge nerated this result transmit jameson reference range: 166 - 35 8 10*3/?L. The reference range was not used to interpret th is result as normal/abnormal . MPV (test code = 18984-1) 9.0 fL 9.5-12.9 L NRBC/100 WBC (test code = See_Comment [ Automated message] The [id number]) system which [employer] nerated this result transmit jameson reference range: 0.0 - 10 .0 /100 WBCs. The reference r denita was not used to interpr et this result as normal/abnor mal. NRBC x10^3 (test code = <0.01 See_Comment [Au tomated message] The 5451906401) system which [employer] nerated this result transmit jameson reference range: 10*3/?L. The reference range was not u sed to interpret this result as normal/abnormal . GRAN MAT (NEUT) % (test code 87.9 % = 770-8) IMM GRAN % (test code = 0.90 % 1058040981) LYMPH % (test code = 736-9) 5.5 % MONO % (test code = 5905-5) 3.7 % EOS % (test code = 713-8) 1.6 % BASO % (test code = 706-2) 0.4 % GRAN MAT x10^3(ANC) (test 20.78 10*3/uL 1.88-7.09 H code = 0392423906) IMM GRAN x10^3 (test code = 0.21 10*3/uL 0.00-0.06 H 0633373342) LYMPH x10^3 (test code = 1.29 10*3/uL 1.32-3.29 L 731-0) MONO x10^3 (test code = 0.88 10*3/uL 0.33-0.92 742-7) EOS x10^3 (test code = 0.37 10*3/uL 0.03-0.39 711-2) BASO x10^3 (test code = 0.09 10*3/uL 0.01-0.07 H 704-7) Lab Interpretation (test Abnormal code = 29962-6) [facility]. METABOLIC PANEL ([id number])2021-06-21 06:19:31 Test Item Value Reference Range Interpretation Comments NA (test code = 135 mmol/L 135-145 9169694302) K (test code = 3.4 mmol/L 3.5-5.0 L 5164312084) CL (test code = 103 mmol/L 98-108 2979904808) CO2 TOTAL (test code = 23 mmol/L 23-31 5671571101) AGAP (test code = 2-16 4078812664) BUN (test code = 7 mg/dL 7-23 9095475457) GLUCOSE (test code = 174 mg/dL 70-110 H 8705248976) CREATININE (test code = 0.68 mg/dL 0.50-1.04 0606589470) TOTAL BILI (test code = 0.5 mg/dL 0.1-1.7 4337110649) CALCIUM (test code = 9.4 mg/dL 8.6-10.6 6828833233) T PROTEIN (test code = 6.9 g/dL 6.3-8.2 7171746836) ALBUMIN (test code = 3.9 g/dL 3.5-5.0 3997925233) ALK PHOS (test code = 89 U/L 34-122 7857977676) ALTv (test code = 12 U/L 5-35 2-6) AST(SGOT) (test code = 15 U/L 13-40 6018914277) eGFR (test code = mL/min/1.73m2 1656775715) WILFRID (test code = WILFRID) Association of Glomerular Filtration Rate (GFR) and Staging of Kidney Disease* + --+ --+ ------+| GFR (mL/min/1.73 m2) ?| With Kidney Damage ?| ?Without Kidney Damage+ --------+ --------+ +| ?>90 ?| ?Stage one ?| ? Normal ?+ ---+ ---+ -------+| ?60-89 ?| ?Stage two ?| ? Decreased GFR ? + --+ --+ ------+| ?30-59 ?| ?Stage three ?| ? Stage three ? + --+ --+ ------+| ?15-29 ?| ?Stage four ? | ? Stage four ?+ ---+ ---+ -------+| ?<15 (or dialysis) ? ?| ?Stage five ? | ? Stage five ?+ ---+ ---+ -------+ *Each stage assumes the associated GFR level has been in effect for at least three months. ?Stages 1 to 5, with or without kidney disease, indicate chronic kidney disease. Notes: Determination of stages one and two (with eGFR >59mL/min/1.73 m2) requires estimation of kidney damage for at least three months as defined by structural or functional abnormalities of the kidney, manifested by either:Pathological abnormalities or Markers of kidney damage (including abnormalities in the composition of the blood or urine or abnormalities in imaging tests). Lab Interpretation Abnormal (test code = 76264-6) [id number] 05:42:00 Test Item Value Reference Range Interpretation Comments POCT PREG (test code = 1605) neg On board controls acceptable with yes C Line (test code = 3574) POCT PREG LOT # (test code = 3575) [id number] POCT PREG TEST DATE (test 05/13/2022 code = 3576) Lab Interpretation (test code = Normal 85146-7) [facility] BETA HCG [id number] 22:24:42 Test Item Value Reference Range Interpretation Comments BETA HCG (test See_Comment [Automated m essage] code = The system [employer] [id number]) generated this result transmit jameson reference range : Non- fe male and male patien ts: <5 mIU/mL. The reference range was not used to interpret this result as normal/abnormal . WILFRID (test code Gestational Age ? ? = WILFRID) ?Range (mIU/mL) 1-10 ?Weeks ?84-77393119-60 Weeks ?37717-97274557-34 Weeks ?8696-11993402-94 Weeks ?7743-192495 Biotin has been reported to cause a negative bias, interpret results relative to patient's use of biotin. [facility] 21:46:21 Test Item Value Reference Range Interpretation Comments APPEARANCE (test code = Clear Clear 7140193587) COLOR (test code = Yellow Yellow 3530066255) PH (test code = 4.8-8.0 3108866884) SP GRAVITY (test code = 1.003-1.030 6977787383) GLU U QUAL (test code = Normal Normal 4269915701) BLOOD (test code = 3+ Negative A 3957986086) KETONES (test code = Negative Negative 7967036963) PROTEIN (test code = Negative Negative 2887-8) UROBILIN (test code = Normal Normal 5179173906) BILIRUBIN (test code = Negative Negative 6544413960) NITRITE (test code = Negative Negative 4762958490) LEUK CATHY (test code = 250/uL Negative A 5966427227) RBC/HPF (test code = See_Comment H [Autom ated message] 6088521937) The system [employer] generated this result transmitted ref erence range: 0 - 3 HP F. The reference range was not used to int erpret this result as normal/abnormal . WBC/HPF (test code = See_Comment H [Autom ated message] 7572989632) The system [employer] generated this result transmitted ref erence range: 0 - 5 HP F. The reference range was not used to int erpret this result as normal/abnormal . BACTERIA (test code = Negative Negative 5369437523) MUCOUS (test code = Slight Negative LPF A 8241635288) SQ EPITH (test code = HPF 9176993033) Lab Interpretation (test Abnormal code = 36368-6) [facility]. METABOLIC PANEL ([id number])2020-08-02 21:42:04 Test Item Value Reference Range Interpretation Comments NA (test code = 139 mmol/L 135-145 9115394891) K (test code = 3.3 mmol/L 3.5-5.0 L 1860508499) CL (test code = 107 mmol/L 98-108 6791849274) CO2 TOTAL (test code = 26 mmol/L 23-31 1058436993) AGAP (test code = 2-16 9904463328) BUN (test code = 7 mg/dL 7-23 2890444705) GLUCOSE (test code = 102 mg/dL 70-110 9904820296) CREATININE (test code = 0.61 mg/dL 0.50-1.04 9593874206) TOTAL BILI (test code = 0.3 mg/dL 0.1-1.6 0926779488) CALCIUM (test code = 9.9 mg/dL 8.6-10.6 4941828656) T PROTEIN (test code = 7.0 g/dL 6.3-8.2 7849406280) ALBUMIN (test code = 4.2 g/dL 3.5-5.0 6243538025) ALK PHOS (test code = 77 U/L 34-122 1581436758) ALTv (test code = 13 U/L 5-35 1742-6) AST(SGOT) (test code = 16 U/L 13-40 5351445231) eGFR (test code = mL/min/1.73m2 8706161852) WILFRID (test code = WILFRID) Association of Glomerular Filtration Rate (GFR) and Staging of Kidney Disease* + --+ --+ ------+| GFR (mL/min/1.73 m2) ?| With Kidney Damage ?| ?Without Kidney Damage+ --------+ --------+ +| ?>90 ?| ?Stage one ?| ? Normal ?+ ---+ ---+ -------+| ?60-89 ?| ?Stage two ?| ? Decreased GFR ? + --+ --+ ------+| ?30-59 ?| ?Stage three ?| ? Stage three ? + --+ --+ ------+| ?15-29 ?| ?Stage four ? | ? Stage four ?+ ---+ ---+ -------+| ?<15 (or dialysis) ? ?| ?Stage five ? | ? Stage five ?+ ---+ ---+ -------+ *Each stage assumes the associated GFR level has been in effect for at least three months. ?Stages 1 to 5, with or without kidney disease, indicate chronic kidney disease. Notes: Determination of stages one and two (with eGFR >59mL/min/1.73 m2) requires estimation of kidney damage for at least three months as defined by structural or functional abnormalities of the kidney, manifested by either:Pathological abnormalities or Markers of kidney damage (including abnormalities in the composition of the blood or urine or abnormalities in imaging tests). Lab Interpretation Abnormal (test code = 79853-3) [facility] WITH [id number] 21:30:00 Test Item Value Reference Range Interpretation Comments WBC (test code = See_Comment [Automated 7790-2) message] The sy stem which generated this result transmitted reference range : 4.30 - 11.10 10*3/?L. The reference range was not used to interpret this result as normal/abnormal . RBC (test code = See_Comment [Automated 789-8) message] The sy stem which generated this result transmitted reference range : 3.93 - 5.25 10*6/?L. The reference range was not used to interpret this result as normal/abnormal . HGB (test code = 12.7 g/dL 11.6-15.0 718-7) HCT (test code = 37.3 % 35.7-45.2 4544-3) MCV (test code = 90.5 fL 80.6-95.5 787-2) MCH (test code = 30.8 pg 25.9-32.8 785-6) MCHC (test code = 34.0 g/dL 31.6-35.1 786-4) RDW-SD (test code = 43.1 fL 39.0-49.9 38813-7) RDW-CV (test code = 13.0 % 12.0-15.5 788-0) PLT (test code = See_Comment H [Automated 777-3) message] The sy stem which generated this result transmitted reference range : 166 - 358 10*3/ ?L. The reference r denita was not used to interpret this result as normal/abnormal . MPV (test code = 9.2 fL 9.5-12.9 L 63129-6) NRBC/100 WBC (test See_Comment [Automat ed code = 1626436660) message] The system which generated this result transmitted reference range : 0.0 - 10.0 /100 WBCs. The refer ence range was not u sed to interpret th is result as normal/abnormal . NRBC x10^3 (test code <0.01 See_Comment [Auto mated = 6185693410) message] The s ystem which generated this result transmitted reference range : 10*3/?L. The reference range was not used to interpret this result as normal/abnormal . GRAN MAT (NEUT) % 57.4 % (test code = 770-8) IMM GRAN % (test code 0.30 % = 3121856861) LYMPH % (test code = 31.0 % 736-9) MONO % (test code = 6.6 % 5905-5) EOS % (test code = 4.2 % 713-8) BASO % (test code = 0.5 % 706-2) GRAN MAT x10^3(ANC) 5.96 10*3/uL 1.88-7.09 (test code = 5003785834) IMM GRAN x10^3 (test 0.03 10*3/uL 0.00-0.06 code = 5065907438) LYMPH x10^3 (test code 3.21 10*3/uL 1.32-3.29 = 731-0) MONO x10^3 (test code 0.68 10*3/uL 0.33-0.92 = 742-7) EOS x10^3 (test code = 0.43 10*3/uL 0.03-0.39 H 711-2) BASO x10^3 (test code 0.05 10*3/uL 0.01-0.07 = 704-7) Lab Interpretation Abnormal (test code = 57083-6) [id number] 21:15:00 Test Item Value Reference Range Interpretation Comments POCT PREG (test code = 1605) positive On board controls acceptable with C present Line (test code = 3574) Lab Interpretation (test code = Normal 46560-9) [facility] / [id number] 14:59:00 Test Item Value Reference Range Interpretation Comments PROTIME PATIENT (test See_Comment [Auto mated message] code = 5964-2) The system wh ich generated this result transmitted ref erence range: 12.0 - 1 4.7 Seconds. The re ference range was not u sed to interpret this result as normal/abnor mal. INR (test code = 6301-6) Nor mal INR <1.1; Warfarin Therap eutic range 2.0 to 3. 0 or 2.5 to 3.5, dep ending upon the indica tions. Lab Interpretation (test Normal code = 80904-1) [facility] [id number] 14:57:00 Test Item Value Reference Range Interpretation Comments TROPONIN I (test <0.012 See_Comment [Automated code = 5513099765) message] The system which generated this result transmitted reference range : <=0.034 ng/mL. The reference range was not used to interpr et this result as normal/abnormal . WILFRID (test code = Equal or Less than WILFRID) 0.034 ng/ml---Normal ?Note: Cardiac troponin begins to rise 3-4 hours after the onset of ischemia. Repeat in 4-6 hours if the sample was drawn within 3-4 hours of the onset of the symptom and found normal. Between 0.035 and 0.120 ng/mL--- Borderline. Questionable myocardial injury or necrosis ? ?Note: Serial measurement may be necessary to confirm or exclude the diagnosis of myocardial injury or necrosis; Clinical correlation (symptoms, EKGs, imaging studies, and others) required; Repeat in 4-6 hours if clinically indicated. ? Equal or Higher than 0.121 ng/mL---Abnormal. Myocardial Injury or Necrosis Likely ? Biotin has been reported to cause a negative bias, interpret results relative to patient's use of biotin. ? Lab Interpretation Normal (test code = 88393-7) [facility]-TERMINAL [id number] 14:55:00 Test Item Value Reference Range Interpretation Comments NT-proBNP (test code 50 pg/mL See_Comment [Autom ated = 0584968972) message] The system which generated this result transmitted reference range : <=125. The reference range was not used to interpret this result as normal/abnormal . WILFRID (test code = WILFRID) Biotin has been reported to cause a negative bias, interpret results relative to patient's use of biotin. Lab Interpretation Normal (test code = 93508-7) [facility] METABOLIC PANEL ([id number])2019-12-26 14:46:00 Test Item Value Reference Range Interpretation Comments NA (test code = 137 mmol/L 135-145 5677228050) K (test code = 3.8 mmol/L 3.5-5 6816051154) CL (test code = 107 mmol/L 98-108 5923833662) CO2 TOTAL (test code = 26 mmol/L 23-31 2437123007) AGAP (test code = 2-16 2404314481) BUN (test code = 6 mg/dL 7-23 L 0036963624) GLUCOSE (test code = 111 mg/dL 70-110 H 4271942928) CREATININE (test code = 0.56 mg/dL 0.5-1.04 7369973057) TOTAL BILI (test code = 0.4 mg/dL 0.1-1.9 7166963597) CALCIUM (test code = 9.7 mg/dL 8.6-10.6 9856198075) T PROTEIN (test code = 7.2 g/dL 6.3-8.2 0349992159) ALBUMIN (test code = 4.2 g/dL 3.5-5 5991304028) ALK PHOS (test code = 74 U/L 34-122 7333548919) ALTv (test code = 18 U/L 5-35 1742-6) AST(SGOT) (test code = 20 U/L 13-40 0913266267) eGFR Calculation mL/min/1.73m2 (Non-) (test code = 8028115691) eGFR Calculation mL/min/1.73m2 () (test code = 9176996748) WILFRID (test code = WILFRID) Association of Glomerular Filtration Rate (GFR) and Staging of Kidney Disease* + --+ --+ ------+| GFR (mL/min/1.73 m2) ?| With Kidney Damage ?| ?Without Kidney Damage+ --------+ --------+ +| ?>90 ?| ?Stage one ?| ? Normal ?+ ---+ ---+ -------+| ?60-89 ?| ?Stage two ?| ? Decreased GFR ? + --+ --+ ------+| ?30-59 ?| ?Stage three ?| ? Stage three ? + --+ --+ ------+| ?15-29 ?| ?Stage four ? | ? Stage four ?+ ---+ ---+ -------+| ?<15 (or dialysis) ? ?| ?Stage five ? | ? Stage five ?+ ---+ ---+ -------+ *Each stage assumes the associated GFR level has been in effect for at least three months. ?Stages 1 to 5, with or without kidney disease, indicate chronic kidney disease. Notes: Determination of stages one and two (with eGFR >59mL/min/1.73 m2) requires estimation of kidney damage for at least three months as defined by structural or functional abnormalities of the kidney, manifested by either:Pathological abnormalities or Markers of kidney damage (including abnormalities in the composition of the blood or urine or abnormalities in imaging tests). Lab Interpretation Abnormal (test code = 59573-2) [facility]2020-10-12 14:46:00 Test Item Value Reference Range Interpretation Comments MAGNESIUM (test code = 4207304746) 2.0 mg/dL 1.7-2.4 Lab Interpretation (test code = Normal 89697-2) [facility]neyXR CHE[facility] 1 [id number] 14:45:03EXAM: XR CHEST 1 VW HISTORY: Chest pain COMPARISON: None. FINDINGS: The heart and great vessels are normal and the lungs are well expanded andclear. ? [facility], Radiant Results Inft User - 12/26/2019 9:46 AM CDTEXAM: XR CHEST 1 VWHISTORY: Chest pain COMPARISON: None.FINDINGS:The heart and great vessels are normal and the lungs are well expanded andclear.[facility]ney[facility]IP[facility], SERUM 2019-12-26 14:45:00 Test Item Value Reference Range Interpretation Comments LIPASE (test code = 0700579548) 87 U/L 0-220 Lab Interpretation (test code = Normal 41121-0) [facility]CBC WITH [id number] 14:29:00 Test Item Value Reference Range Interpretation Comments WBC (test code = See_Comment [Automated 4189-2) message] The sy stem which generated this result transmitted reference range : 4.30 - 11.10 10*3/?L. The reference range was not used to interpret this result as normal/abnormal . RBC (test code = See_Comment [Automated 987-8) message] The sy stem which generated this result transmitted reference range : 3.93 - 5.25 10*6/?L. The reference range was not used to interpret this result as normal/abnormal . HGB (test code = 13.1 g/dL 11.6-15 718-7) HCT (test code = 38.7 % 35.7-45.2 4544-3) MCV (test code = 89.8 fL 80.6-95.5 787-2) MCH (test code = 30.4 pg 25.9-32.8 785-6) MCHC (test code = 33.9 g/dL 31.6-35.1 786-4) RDW-SD (test code = 42.7 fL 39-49.9 03891-3) RDW-CV (test code = 12.9 % 12-15.5 788-0) PLT (test code = See_Comment H [Automated 777-3) message] The sy stem which generated this result transmitted reference range : 166 - 358 10*3/ ?L. The reference r denita was not used to interpret this result as normal/abnormal . MPV (test code = 9.0 fL 9.5-12.9 L 24896-1) NRBC/100 WBC (test See_Comment [Automat ed code = 7813928508) message] The system which generated this result transmitted reference range : 0.0 - 10.0 /100 WBCs. The refer ence range was not u sed to interpret th is result as normal/abnormal . NRBC x10^3 (test code <0.01 See_Comment [Auto mated = 9784035983) message] The s ystem which generated this result transmitted reference range : 10*3/?L. The reference range was not used to interpret this result as normal/abnormal . GRAN MAT (NEUT) % 64.4 % (test code = 770-8) IMM GRAN % (test code 0.40 % = 9138882112) LYMPH % (test code = 24.8 % 736-9) MONO % (test code = 6.8 % 5905-5) EOS % (test code = 3.0 % 713-8) BASO % (test code = 0.6 % 706-2) GRAN MAT x10^3(ANC) 5.43 10*3/uL 1.88-7.09 (test code = 3160125776) IMM GRAN x10^3 (test 0.03 10*3/uL 0-0.06 code = 5610744693) LYMPH x10^3 (test code 2.09 10*3/uL 1.32-3.29 = 731-0) MONO x10^3 (test code 0.57 10*3/uL 0.33-0.92 = 742-7) EOS x10^3 (test code = 0.25 10*3/uL 0.03-0.39 711-2) BASO x10^3 (test code 0.05 10*3/uL 0.01-0.07 = 704-7) Lab Interpretation Abnormal (test code = 26567-5) [facility]OM[facility] PELVIS WO [id number] 02:15:33 Nonobstructing left UVJ calculus measuring 3 mm. Nonobstructing right upper renal pole calculus measuring 3 mm. Changes of a cholecystectomy. Preliminary Report Dictated by Resident: Jere Diop MD., have reviewed this study and agree with theabove report.EXAM: CT ABDOMEN AND PELVIS WITHOUT CONTRAST HISTORY: Stone disease suspected COMPARISON: None. TECHNIQUE AND FINDINGS: Contiguous axial imaging from the level of the lungbases through the proximal thighs was performed without the intravenousadministration of contrast. Coronal and sagittal reconstructions wereobtained. ?Auto mA and/or iterative reconstruction were used to reduceradiation dose. FINDINGS: Limited evaluationof abdominal and pelvic organs due to lack ofintravenous contrast. LOWER THORAX: Bibasilar dependentatelectasis. Small amount of scarringwithin the medial left lower lobe. HEPATOBILIARY: No focal hepatic lesions within limits of unenhancedtechnique. Normal hepatic attenuation. Enlarged liver ewijltgd53 cm in thecraniocaudal dimension. Changes of a cholecystectomy. SPLEEN: No splenomegaly. PANCREAS:No ductal dilation. ADRENAL GLANDS: No adrenal nodules. GENITOURINARY: Obstructive left UVJ stone measures 3 mm. No upstream lefthydronephrosis or hydroureter. Punctate nonobstructing right upper renalpole calculus measures 3 mm. No contour deforming lesions. Nohydronephrosis. PERITONEUM AND RETROPERITONEUM: No free air or fluid. Small fat- containingumbilical hernia. LYMPH NODES: No lymphadenopathy. GI TRACT: Small sliding-type hiatal hernia. No dilation or normal wallthickening. Mild pancolonic without acute diverticulitis. Appendix is notvisualized. However, there is no right lower quadrant inflammatory changesor stranding. PELVIS/BLADDER: The uterus and ovaries are unremarkable. Urinary bladderisnormal for the degree of distention. No urinary bladder calculi. VESSELS: No appreciable describedcalcifications in the infrarenalabdominal aorta. BONES AND SOFT TISSUES: No suspicious lytic or sclerotic bony lesions. [facility], Radiant Results Inft User - 10/12/2019 9:16 PM CDTEXAM: CT ABDOMEN AND PELVIS WITHOUT CONTRASTHISTORY: Stone disease suspectedCOMPARISON: None.TECHNIQUE AND FINDINGS: Contiguous axial imaging from the level of the lungbases through the proximal thighs was performed without theintravenousadministration of contrast. Coronal and sagittal reconstructions wereobtained. Auto mA and/or iterative reconstruction were used to reduceradiation dose.FINDINGS: Limited evaluation of abdominal and pelvic organs due to lack ofintravenous contrast.LOWER THORAX: Bibasilar dependent atelectasis. Small amount of scarringwithin the medial left lower lobe.HEPATOBILIARY: No focal hepatic lesionswithin limits of unenhancedtechnique. Normal hepatic attenuation. Enlarged liver measures 22 cm in thecraniocaudal dimension. Changes of a cholecystectomy. SPLEEN: No splenomegaly.PANCREAS: No ductal dilation.ADRENAL GLANDS: No adrenal nodules.GENITOURINARY: Obstructive left UVJ stone measures 3 mm. No upstream lefthydronephrosis or hydroureter. Punctate nonobstructing right upper renalpole calculus measures 3 mm. No contour deforming lesions. Nohydronephrosis.PERITONEUM AND RETROPERITONEUM: No freeair or fluid. Small fat- containingumbilical hernia.LYMPH NODES: No lymphadenopathy.GI TRACT: Small sl iding-type hiatal hernia. No dilation or normal wallthickening. Mild pancolonic without acute diverticulitis. Appendix is notvisualized. However, there is no right lower quadrant inflammatory changesorstranding.PELVIS/BLADDER: The uterus and ovaries are unremarkable. Urinary bladder isnormal for the degree of distention. No urinary bladder calculi.VESSELS: No appreciable described calcifications in the infrarenalabdominal aorta.BONES AND SOFT TISSUES: No suspicious lytic or sclerotic bony lesions.IMPRESSIONNonobstructing left UVJ calculus measuring 3 mm.Nonobstructing right upper renal pole calculus measuring 3 mm.Changes of a cholecystectomy.Preliminary Report Dictated by Resident: Jere Aquino MD., have reviewed this study and agree with theabove report.[facility]neyURINAL[facility]IS2020-07-29 23:56:00 Test Item Value Reference Range Interpretation Comments APPEARANCE (test code = Hazy Clear A 5588030879) COLOR (test code = Yellow Yellow 7896363368) PH (test code = 4.8-8.0 0781787272) SP GRAVITY (test code = 1.003-1.030 3941813926) GLU U QUAL (test code = Normal Normal 5455299320) BLOOD (test code = 3+ Negative A 1947227319) KETONES (test code = Negative Negative 0810725610) PROTEIN (test code = 30 mg/dL Negative A 2887-8) UROBILIN (test code = Normal Normal 8481923718) BILIRUBIN (test code = Negative Negative 9127355081) NITRITE (test code = Negative Negative 9539069792) LEUK CATHY (test code = 250/uL Negative A 5187771137) RBC/HPF (test code = >182 See_Comment H [Autom ated message] 0647845855) The system [employer] generated this result transmitted ref erence range: 0 - 3 HP F. The reference range was not used to int erpret this result as normal/abnormal . WBC/HPF (test code = See_Comment H [Autom ated message] 8590364537) The system [employer] generated this result transmitted ref erence range: 0 - 5 HP F. The reference range was not used to int erpret this result as normal/abnormal . BACTERIA (test code = Few Negative A 7782716400) MUCOUS (test code = Marked Negative LPF A 4611752734) SQ EPITH (test code = HPF 2544995090) Lab Interpretation (test Abnormal code = 17712-4) [facility]OL[facility] PANEL ([id number])2019-10-12 23:49:00 Test Item Value Reference Range Interpretation Comments NA (test code = 138 mmol/L 135-145 5593130704) K (test code = 3.6 mmol/L 3.5-5 7094914895) CL (test code = 108 mmol/L 98-108 5368849871) CO2 TOTAL (test code = 22 mmol/L 23-31 L 0087078536) AGAP (test code = 2-16 1107233682) BUN (test code = 9 mg/dL 7-23 8893049566) GLUCOSE (test code = 111 mg/dL 70-110 H 6984284450) CREATININE (test code = 0.65 mg/dL 0.5-1.04 3380915298) TOTAL BILI (test code = 0.6 mg/dL 0.1-1.0 7240170768) CALCIUM (test code = 10.1 mg/dL 8.6-10.6 6981753342) T PROTEIN (test code = 8.3 g/dL 6.3-8.2 H 3284249143) ALBUMIN (test code = 4.5 g/dL 3.5-5 3313790290) ALK PHOS (test code = 74 U/L 34-122 7024730483) ALTv (test code = 18 U/L 5-35 1742-6) AST(SGOT) (test code = 23 U/L 13-40 9610423304) eGFR Calculation mL/min/1.73m2 (Non-) (test code = 7993971707) eGFR Calculation mL/min/1.73m2 () (test code = 3380041073) WILFRID (test code = WILFRID) Association of Glomerular Filtration Rate (GFR) and Staging of Kidney Disease* + --+ --+ ------+| GFR (mL/min/1.73 m2) ?| With Kidney Damage ?| ?Without Kidney Damage+ --------+ --------+ +| ?>90 ?| ?Stage one ?| ? Normal ?+ ---+ ---+ -------+| ?60-89 ?| ?Stage two ?| ? Decreased GFR ? + --+ --+ ------+| ?30-59 ?| ?Stage three ?| ? Stage three ? + --+ --+ ------+| ?15-29 ?| ?Stage four ? | ? Stage four ?+ ---+ ---+ -------+| ?<15 (or dialysis) ? ?| ?Stage five ? | ? Stage five ?+ ---+ ---+ -------+ *Each stage assumes the associated GFR level has been in effect for at least three months. ?Stages 1 to 5, with or without kidney disease, indicate chronic kidney disease. Notes: Determination of stages one and two (with eGFR >59mL/min/1.73 m2) requires estimation of kidney damage for at least three months as defined by structural or functional abnormalities of the kidney, manifested by either:Pathological abnormalities or Markers of kidney damage (including abnormalities in the composition of the blood or urine or abnormalities in imaging tests). Lab Interpretation Abnormal (test code = 06559-7) [facility] WITH [id number] 23:33:00 Test Item Value Reference Range Interpretation Comments WBC (test code = See_Comment H [Automated 1090-2) message] The sy stem which generated this result transmitted reference range : 4.30 - 11.10 10*3/?L. The reference range was not used to interpret this result as normal/abnormal . RBC (test code = See_Comment [Automated 789-8) message] The sy stem which generated this result transmitted reference range : 3.93 - 5.25 10*6/?L. The reference range was not used to interpret this result as normal/abnormal . HGB (test code = 13.3 g/dL 11.6-15 718-7) HCT (test code = 37.0 % 35.7-45.2 4544-3) MCV (test code = 86.7 fL 80.6-95.5 787-2) MCH (test code = 31.1 pg 25.9-32.8 785-6) MCHC (test code = 35.9 g/dL 31.6-35.1 H 786-4) RDW-SD (test code = 39.5 fL 39-49.9 24635-6) RDW-CV (test code = 12.7 % 12-15.5 788-0) PLT (test code = See_Comment H [Automated 777-3) message] The sy stem which generated this result transmitted reference range : 166 - 358 10*3/ ?L. The reference r denita was not used to interpret this result as normal/abnormal . MPV (test code = 9.0 fL 9.5-12.9 L 11499-4) NRBC/100 WBC (test See_Comment [Automat ed code = 5767486420) message] The system which generated this result transmitted reference range : 0.0 - 10.0 /100 WBCs. The refer ence range was not u sed to interpret th is result as normal/abnormal . NRBC x10^3 (test code <0.01 See_Comment [Auto mated = 3747435487) message] The s ystem which generated this result transmitted reference range : 10*3/?L. The reference range was not used to interpret this result as normal/abnormal . GRAN MAT (NEUT) % 73.2 % (test code = 770-8) IMM GRAN % (test code 0.20 % = 7271660823) LYMPH % (test code = 19.3 % 736-9) MONO % (test code = 5.5 % 5905-5) EOS % (test code = 1.4 % 713-8) BASO % (test code = 0.4 % 706-2) GRAN MAT x10^3(ANC) 8.87 10*3/uL 1.88-7.09 H (test code = 3964854322) IMM GRAN x10^3 (test 0.03 10*3/uL 0-0.06 code = 1790912064) LYMPH x10^3 (test code 2.34 10*3/uL 1.32-3.29 = 731-0) MONO x10^3 (test code 0.67 10*3/uL 0.33-0.92 = 742-7) EOS x10^3 (test code = 0.17 10*3/uL 0.03-0.39 711-2) BASO x10^3 (test code 0.05 10*3/uL 0.01-0.07 = 704-7) Lab Interpretation Abnormal (test code = 00834-9) [facility] [id number] 23:23:00 Test Item Value Reference Range Interpretation Comments POCT PREG (test code = 1605) negative On board controls acceptable with present C Line (test code = 3574) POCT PREG LOT # (test code = 3575) [id number] POCT PREG TEST DATE (test code = 357) Lab Interpretation (test code = Normal 06608-7) [facility]"
[2022-01-06] MEDS ORDERED: ONDANSETRON 4 MG/2 ML VIAL ONE (01:10)
[2022-01-06] MEDS ORDERED: NA CHLORIDE 0.9% 1,000 ML ONE (01:10)
[2022-01-06 01:24] LABS: Protime INR 0.97
[2022-01-06 01:25] LABS: Absolute Lymphocytes (CBC) 3.1 K/uL (0.7-4.9); Lymphocytes % 32.5 % (15.3-44.8); MCV 90.5 fL (80-100); MPV 6.9 fL (7.6-11.3); RBC Red Blood Cell Count 3.98 M/uL (3.86-4.86)
[2022-01-06] MEDS ORDERED: FAMOTIDINE 20 MG/2 ML VIAL IV ONE (01:35)
[2022-01-06 01:36] LABS: SARS-CoV-2 Antigen Rapid Res Negative (Negative)
[2022-01-06 01:38] LABS: ALT/SGPT 24 U/L (12-78); AST/SGOT 9 U/L (15-37); Albumin 3.3 g/dL (3.4-5.0); Alkaline Phosphatase 65 U/L (45-117); BUN Blood Urea Nitrogen 11 mg/dL (7-18); Bicarbonate 29 mmol/L (21-32); Bilirubin Total 0.1 mg/dL (0.2-1.0); Glomerular Filtration Rate 102 ml/min (=/>90); Glucose Level 118 mg/dL (74-106); Lipase 158 U/L (73-393); Magnesium 2.1 mg/dL (1.8-2.4); NT PRO-BNP 17 pg/mL (<125); Potassium 3.3 mmol/L (3.5-5.1); Sodium Level 139 mmol/L (136-145); Troponin High Sensitivity 4.6 pg/mL (<58.9)
[2022-01-06 01:48] LABS: Bilirubin Direct < 0.1 mg/dL (0-0.2)
--- NOTE | 2022-01-06 02:36 | EDPHYS ---
Physician Documentation [facility] Name: Marina Valdivia Age: 41 yrs Sex: Female : 1980 Arrival Date: 01/05/2022 Time: 23:01 Bed 6 Private MD: ROBER Physician Derrick Walter HPI: 01/05 23:38 This 41 yrs old Female presents to ER via Ambulatory with complaints of jelena Vomiting. 23:38 The patient presents to the emergency department with nausea, vomiting, that is jelena intermittent. Onset: The symptoms/episode began/occurred 5 day(s) ago. Possible causes: unknown. The symptoms are aggravated by nothing. The symptoms are alleviated by nothing. Associated signs and symptoms: The patient has no apparent associated signs or symptoms. Severity of symptoms: At their worst the symptoms were moderate in the emergency department the symptoms are unchanged. The patient has not experienced similar symptoms in the past. Historical: - Allergies: 23:11 Sulfa (Sulfonamide Antibiotics); hb - Home Meds: 23:11 lisinopril 20 mg Oral tab 1 tab once daily [Active]; hb - PMHx: 23:11 Hypertensive disorder; hb - PSHx: 23:11 Appendectomy; Cholecystectomy; section; hb - Immunization history:: Adult Immunizations up to date, Client reports receiving the 2nd dose of the Covid vaccine, Flu vaccine is up to date. - Social history:: Smoking status: Patient reports the use of cigarette tobacco products, smokes one-half pack cigarettes per day. ROS: 23:38 Constitutional: Negative for fever, chills, and weight loss, Eyes: Negative for injury, jelena pain, redness, and discharge, ENT: Negative for injury, pain, and discharge, Neck: Negative for injury, pain, and swelling, Cardiovascular: Negative for chest pain, palpitations, and edema, Respiratory: Negative for shortness of breath, cough, wheezing, and pleuritic chest pain, Back: Negative for injury and pain, : Negative for injury, bleeding, discharge, and swelling, MS/Extremity: Negative for injury and deformity, Skin: Negative for injury, rash, and discoloration, Neuro: Negative for headache, weakness, numbness, tingling, and seizure. 23:38 Abdomen/GI: Positive for nausea and vomiting. Exam: 23:38 Constitutional: This is a well developed, well nourished patient who is awake, alert, jelena and in no acute distress. Head/Face: Normocephalic, atraumatic. Eyes: Pupils equal round and reactive to light, extra-ocular motions intact. Lids and lashes normal. Conjunctiva and sclera are non-icteric and not injected. Cornea within normal limits. Periorbital areas with no swelling, redness, or edema. ENT: Nares patent. No nasal discharge, no septal abnormalities noted. Tympanic membranes are normal and external auditory canals are clear. Oropharynx with no redness, swelling, or masses, exudates, or evidence of obstruction, uvula midline. Mucous membranes moist. Neck: Trachea midline, no thyromegaly or masses palpated, and no cervical lymphadenopathy. Supple, full range of motion without nuchal rigidity, or vertebral point tenderness. No Meningismus. Chest/axilla: Normal chest wall appearance and motion. Nontender with no deformity. No lesions are appreciated. Cardiovascular: Regular rate and rhythm with a normal S1 and S2. No gallops, murmurs, or rubs. Normal PMI, no JVD. No pulse deficits. Respiratory: Lungs have equal breath sounds bilaterally, clear to auscultation and percussion. No rales, rhonchi or wheezes noted. No increased work of breathing, no retractions or nasal flaring. Abdomen/GI: Soft, non-tender, with normal bowel sounds. No distension or tympany. No guarding or rebound. No evidence of tenderness throughout. Back: No spinal tenderness. No costovertebral tenderness. Full range of motion. Skin: Warm, dry with normal turgor. Normal color with no rashes, no lesions, and no evidence of cellulitis. MS/ Extremity: Pulses equal, no cyanosis. Neurovascular intact. Full, normal range of motion. Neuro: Awake and alert, GCS 15, oriented to person, place, time, and situation. Cranial nerves II-XII grossly intact. Motor strength 5/5 in all extremities. Sensory grossly intact. Cerebellar exam normal. Normal gait. Psych: Awake, alert, with orientation to person, place and time. Behavior, mood, and affect are within normal limits. 01/06 00:58 ECG was reviewed by the Attending Physician. [facility] Vital Signs: 01/05 23:09 BP 145 / 86; Pulse 78; Resp 16; Temp 97.8; Pulse Ox 100% on R/A; Weight 99.79 kg; hb Height 5 ft. 2 in. (157.48 cm); Pain 09/22; 01/06 03:09 BP 102 / 59; Pulse 66; Resp 18 S; Pulse Ox 95% on R/A; as6 01/05 23:09 Body Mass Index 40.24 (99.79 kg, 157.48 cm) hb MDM: 01/05 23:17 Patient medically screened. jelena 23:40 Differential diagnosis: Nonspecific abd pain, cholecystitis, pancreatitis, viral jelena gastroenteritis, gastroenteritis. Differential Diagnosis. Data reviewed: vital signs, nurses notes, lab test result(s), EKG, radiologic studies, plain films. Data interpreted: potline monitor: rate is 78 beats/min, rhythm is regular, Pulse oximetry: on room air is 100 %. Test interpretation: by ED physician or midlevel provider: ECG, plain radiologic studies. Counseling: I had a detailed discussion with the patient and/or guardian regarding: the historical points, exam findings, and any diagnostic results supporting the discharge/admit diagnosis, the presence of at least one elevated blood pressure reading (>120/80) during this emergency department visit, lab results, radiology results. 01/05 23:19 Order name: Basic Metabolic Panel; Complete Time: 02:33 [facility] 01/05 23:19 Order name: CBC with Diff; Complete Time: 01:48 [facility] 01/05 23:19 Order name: LFT's; Complete Time: 02:33 [facility] 01/05 23:19 Order name: Magnesium; Complete Time: 02:33 [facility] 01/05 23:19 Order name: NT PRO-BNP; Complete Time: 02:33 [facility] 01/05 23:19 Order name: PT-INR; Complete Time: 01:29 [facility] 01/05 23:19 Order name: Troponin HS; Complete Time: 02:33 jelena 01/05 23:19 Order name: XRAY Chest (1 view) jelena 01/05 23:19 Order name: Lipase; Complete Time: 02:33 jelena 01/05 23:19 Order name: Flu; Complete Time: 01:48 jelena 01/05 23:19 Order name: SARS RAPID; Complete Time: 01:48 [facility] 01/05 23:19 Order name: Cardiac monitoring; Complete Time: 01:04 [facility] 10/23 23:19 Order name: EKG - Nurse/Tech; Complete Time: 01: [facility] 01/05 23:19 Order name: IV Saline Lock; Complete Time: : [facility] 01/05 23:19 Order name: Labs collected and sent; Complete Time: 01: [facility] 01/05 23:19 Order name: O2 Per Protocol; Complete Time: 01: [facility] 01/05 23:19 Order name: O2 Sat Monitoring; Complete Time: 01:05 [facility] EC/24 00:58 Rate is 66 beats/min. Rhythm is regular. QRS Erick is Normal. ME interval is normal. QRS jelena interval is normal. QT interval is normal. No Q waves. T waves are Normal. No ST changes noted. Clinical impression: Normal ECG, No change from prior ECG, and No evidence of ischemia. Interpreted by me. Reviewed by me. Administered Medications: 01:13 Drug: NS 0.9% 1000 ml Route: IV; Rate: 1 bolus; Site: right antecubital; aa9 03:05 Follow up: Response: No adverse reaction; IV Status: Completed infusion; IV Intake: as6 1000ml 01:13 Drug: Zofran (Ondansetron) 4 mg Route: IVP; Site: right antecubital; aa9 03:07 Follow up: Response: No adverse reaction as6 01:43 Drug: Pepcid (famotidine) 20 mg Route: IVP; Site: right antecubital; aa9 03:06 Follow up: Response: No adverse reaction as6 02:57 Drug: Potassium Effervescent Tablet 25 mEq Route: PO; as6 03:07 Follow up: Response: No adverse reaction as6 03:03 Drug: Phenergan (promethazine) 25 mg Route: IM; Site: right deltoid; as6 03:07 Follow up: Response: No adverse reaction as6 Disposition Summary: 01/06/22 02:36 Discharge Ordered Location: Home jelena Problem: new jelena Symptoms: have improved jelena Condition: Stable jelena Diagnosis - Vomiting jelena - Chest pain, unspecified - SECONDARY TO VOMITING jelena - Hypokalemia jelena Followup: jelena - With: Private Physician - When: 2 - 3 days - Reason: Recheck today's complaints, Continuance of care, Re-evaluation by your physician Discharge Instructions: - Discharge Summary Sheet jelena - Nonspecific Chest Pain, Adult jelena - Nonspecific Chest Pain, Adult, [id number] jelena - Potassium Content of Foods jelena - Hypertension, Adult jelena - Hypertension, Adult, [id number] jelena - Vomiting, Adult jelena - Hypokalemia [facility] Forms: - Medication Reconciliation Form [facility] - Thank You Letter jelena - Antibiotic Education jelena - Prescription Opioid Use jelena - Work release form as6 Prescriptions: - Pepcid 20 mg Oral Tablet - take 1 tablet by ORAL route every 12 hours for 10 days; 20 tablet; Refills: 0, [facility] Product Selection Permitted - Zofran 4 mg Oral Tablet - take 1 tablet by ORAL route every 12 hours As needed; 20 tablet; Refills: 0, [facility] Product Selection Permitted - promethazine 25 mg Oral Tablet - take 1 tablet by ORAL route every 6 hours As needed; 20 tablet; Refills: 0, [facility] Product Selection Permitted Signatures: Dispatcher [employer] Derrick Anderson MD MD cha Baxter, Heather, DANIEL SANCHEZ hb Steven Ugalde RN RN as6 Enriqueta Monahan RN RN aa9
--- NOTE | 2022-01-06 02:36 | ER ---
Nurse's Notes [facility] Name: Marina Valdivia Age: 41 yrs Sex: Female : 1980 Arrival Date: 01/05/2022 Time: 23:01 Bed 6 Private MD: Diagnosis: Vomiting;Chest pain, unspecified-SECONDARY TO VOMITING;Hypokalemia Presentation: 01/05 23:09 Chief complaint: Subjective fever, headache, body aches, and N/V x 1 week. Not hb tolerating fluids x 2 days despite Zofran. Coronavirus screen: Client presents with at least one sign or symptom that may indicate coronavirus-19. Standard/surgical mask placed on the client. Provider contacted for isolation considerations. Ebola Screen: No symptoms or risks identified at this time. Risk Assessment: Do you want to hurt yourself or someone else? Patient reports no desire to harm self or others. Onset of symptoms was December 30, 2021. 23:09 Method Of Arrival: Ambulatory hb 23:09 Acuity: RE 3 hb 01/06 03:08 Initial Sepsis Screen: Does the patient meet any 2 criteria? No. Patient's initial as6 sepsis screen is negative. Does the patient have a suspected source of infection? No. Patient's initial sepsis screen is negative. Historical: - Allergies: 01/05 23:11 Sulfa (Sulfonamide Antibiotics); hb - Home Meds: 23:11 lisinopril 20 mg Oral tab 1 tab once daily [Active]; hb - PMHx: 23:11 Hypertensive disorder; hb - PSHx: 23:11 Appendectomy; Cholecystectomy; section; hb - Immunization history:: Adult Immunizations up to date, Client reports receiving the 2nd dose of the Covid vaccine, Flu vaccine is up to date. - Social history:: Smoking status: Patient reports the use of cigarette tobacco products, smokes one-half pack cigarettes per day. Screenin/24 03:07 Abuse screen: Denies threats or abuse. Denies injuries from another. Nutritional as6 screening: No deficits noted. Tuberculosis screening: No symptoms or risk factors identified. Fall Risk None identified. Assessment: 03:08 General: Appears uncomfortable, ill, Behavior is calm, cooperative. General: Reports as6 fever for feeling ill for. Pain: Complains of pain in abdomen. Neuro: Level of Consciousness is awake, alert, obeys commands, Reports headache. Respiratory: Respiratory effort is even, unlabored. GI: Reports nausea, vomiting. :. Vital Signs: 01/05 23:09 BP 145 / 86; Pulse 78; Resp 16; Temp 97.8; Pulse Ox 100% on R/A; Weight 99.79 kg; hb Height 5 ft. 2 in. (157.48 cm); Pain 7/10; 01/06 03:09 BP 102 / 59; Pulse 66; Resp 18 S; Pulse Ox 95% on R/A; as6 01/05 23:09 Body Mass Index 40.24 (99.79 kg, 157.48 cm) hb ED Course: 01/05 23:01 Patient arrived in ED. bp1 23:11 Triage completed. hb 23:12 Arm band placed on. hb 23:17 Derrick Walter MD is Attending Physician. jelena 01/06 00:01 XRAY Chest (1 view) In Process Unspecified. EDMS 00:59 Inserted saline lock: 20 gauge in right antecubital area, using aseptic technique. aa9 Blood collected. 01:04 Enriqueta Monahan, RN is Primary Nurse. aa9 01:04 Flu Sent. aa9 01:04 SARS RAPID Sent. aa9 01:04 Lipase Sent. aa9 01:04 Magnesium Sent. aa9 01:04 Troponin HS Sent. aa9 01:04 PT-INR Sent. aa9 01:04 NT PRO-BNP Sent. aa9 01:04 LFT's Sent. aa9 01:04 CBC with Diff Sent. aa9 01:04 Basic Metabolic Panel Sent. aa9 03:08 Bed in low position. Call light in reach. as6 03:12 No provider procedures requiring assistance completed. IV discontinued, intact, as6 bleeding controlled, No redness/swelling at site. Pressure dressing applied. Administered Medications: 01:13 Drug: NS 0.9% 1000 ml Route: IV; Rate: 1 bolus; Site: right antecubital; aa9 03:05 Follow up: Response: No adverse reaction; IV Status: Completed infusion; IV Intake: as6 1000ml 01:13 Drug: Zofran (Ondansetron) 4 mg Route: IVP; Site: right antecubital; aa9 03:07 Follow up: Response: No adverse reaction as6 01:43 Drug: Pepcid (famotidine) 20 mg Route: IVP; Site: right antecubital; aa9 03:06 Follow up: Response: No adverse reaction as6 02:57 Drug: Potassium Effervescent Tablet 25 mEq Route: PO; as6 03:07 Follow up: Response: No adverse reaction as6 03:03 Drug: Phenergan (promethazine) 25 mg Route: IM; Site: right deltoid; as6 03:07 Follow up: Response: No adverse reaction as6 Medication: 03:08 VIS not applicable for this client. as6 Intake: 03:05 IV: 1000ml; Total: 1000ml. as6 Outcome: 02:36 Discharge ordered by . jelena 03:12 Discharged to home ambulatory. as6 03:12 Condition: stable 03:12 Discharge instructions given to patient, Instructed on discharge instructions, follow up and referral plans. medication usage, Demonstrated understanding of instructions, follow-up care, medications, Prescriptions given X 3. 03:12 Patient left the ED. as6 Signatures: Dispatcher [employer] EDMS Derrick Walter MD MD cha Baxter, Heather, RN RN hb Ting Daugherty Ashby, RN RN as6 Enriqueta Monahan, RN RN aa9 Corrections: (The following items were deleted from the chart) 01/05 23:12 23:09 Chief complaint: Subjective fever, headache, body aches, and N/V x 1 week. Not hb tolerating fluids x 2 days. hb
[2022-01-06] MEDS ORDERED: POTASSIUM 25 MEQ EFFERV TAB ONE (02:53)
[2022-01-06] MEDS ORDERED: PROMETHAZINE INJ 25 MG/ML AMP ONE (02:58)
[2022-01-06 03:17] VITALS: TEMP 97.8
[2022-01-06 03:19] VITALS: BP 102/59; O2SAT 95
--- NOTE | 2022-01-06 11:03 | RAD REPORT ---
EXAM DESCRIPTION: Chest Single View CLINICAL HISTORY: 41 years Female ABDOMINAL DISTENTION COMPARISON: None TECHNIQUE: AP view of the chest was obtained. FINDINGS: Cardiac silhouette is mildly enlarged. Central vessels are moderately increased. Streaky perihilar opacities bilaterally. No effusions bilaterally. No pneumothorax. IMPRESSION: Moderate central congestion. Bilateral perihilar infiltrate versus atelectatic change or pulmonary congestion. Electronically signed by: Lary Nguyen MD 01/06/2022 12:08 AM CDT Due to temporary technical issues with the PACS/Fluency reporting system, reports are being signed by the in house radiologists without review as a courtesy to insure prompt reporting. The interpreting radiologist is fully responsible for the content of the report.
--- NOTE | 2022-01-06 18:37 | EKG ---
Test Date: 2022-01-06 Test Time: 00:51:02 [employer] Specialist: JAZMINE MEASUREMENT RESULTS: Intervals: Rate: 66 WY: 150 QRSD: 80 QT: 414 QTc: 434 [place]: P: 46 WY: 150 QRS: 48 T: 50 INTERPRETIVE STATEMENTS: Normal sinus rhythm Normal ECG No previous ECG available for comparison Electronically Signed On 01-06-22 18:35:51 CDT by Levi Henning
== END 2022-01-06 03:12 | disposition home or self-care (01) ==
LOC: ER 22:58
DX: R11.2 Nausea with vomiting, unspecified (principal); R07.9 Chest pain, unspecified; E87.6 Hypokalemia
CPT/HCPCS: 36415; 71045; 80048; 80076; 83690; 83735; 83880; 84484; 85025; 85610; 87804; 87811; 93005; 96361; 96372; 96374; 96375; 99284; J2405; J2550; J7030

== ENCOUNTER 2022-03-03 21:41 | Emergency (ER) | payer SELFPAY ==
--- OUTSIDE RECORDS SUMMARY | 2022-03-03 21:47 | XMS REPORT | Continuity of Care Document ---
:1980 Author Organization [facility] t Address [address] [place] [address] Care Team Providers Name Role Phone LIZBETH HOLLOWAY Primary Care Physician Unavailable NUZHAT LEO Attending Clinician Unavailable Nuzhat Leo DO Attending Clinician CARLITA BERNABE Attending Clinician Unavailable Carlita Bernabe DO Attending Clinician MLI CASTRO Attending Clinician Unavailable Mil Chambers Attending Clinician Zack Jensen Attending Clinician ZACK CHAPMAN Attending Clinician Unavailable Heaven Weinstein Attending Clinician HEAVEN ENRIQUEZ Attending Clinician Unavailable Doctor Unassigned, [place] Attending Clinician Unavailable mAinata Lujan Attending Clinician NUZHAT LEO Admitting Clinician Unavailable MIL CASTRO Admitting Clinician Unavailable Payers Payer Name Policy Type Policy Number Effective Date Expiration Date S edmund R [id number] 2021 00:00:00 MEDICAID PENDING PENDING 2019 00:00:00 [...] Source Exposure to 2021-11-19 2021-11-29 Not sure [facility] SARS-CoV-2 (event) 00:00:00 09:24:00 Medica l Branch Sex Assigned At [address] [facility] 00:00:00 00:00:00 Medical Branch Smoking Status Start Date Stop Date Source Tobacco smoking consumption [facility] Medical unknown Branch Medications Ordered Filled Start Stop Current Ordering Indication Dosage Frequency Signature Comments Components Source Medication Medication Date Date Medication? Clinician (SIG) Name Name methylPREDN Yes [id number] Take by Univers ISolone 11-29 9107 mouth ity of (MEDROL, 00:00: SEE-INSTRU [place] as ODILON,) 4 mg 00 CTIONS. Medica l tablets follow Branch package directions naproxen Yes [id number] 550mg Take 1 Univers sodium 11-2907 tablet by ity of (ANAPROX 00:00: mouth in [place] DS) 550 mg 00 the Medical tablet morning Branch and 1 tablet in the evening. Take with meals. lisinopriL No 10mg 10 mg, Univ ers (PRINIVIL,Z 11-03 Oral, ity of ESTRIL) 12:45: 11:35 ONCE, 1 [place] tablet 10 00 :00 dose, On Medica l mg Sun Branch 11/03/21 at 0745, Routine FLUTICASONE No Use in Uni vers PROPIONATE 11-03 each ity of (FLONASE 06:33: 00:00 [place]. [place] NASAL) 07 :00 Medical Branch lisinopriL No [id number] 10mg Take 1 Univers 10 mg 11-03 tablet by ity of tablet 00:00: 04:59 mouth at [place] 00 :00 bedtime Medical for 30 Branch days. lisinopriL 2021- No [id number] 10mg Take 1 Univers 10 mg 11-03 tablet by ity of tablet 00:00: 04:59 mouth at [place] 00 :00 [facility] for 30 Branch days. iopamidol No [id number] 100mL 100 mL, Univers (ISOVUE 06-21-08 Intravenou ity o f 370-500 mL) 07:15: 06:07 s, ONCE, 1 [place] injection 00 :00 dose, On Medica l 100 mL Thu06/21/21 Branch at 0215, Routine penicillin No 1.210 1.2 Unive rs g 06-21 04-08 Million ity of benzathine 06:30: 06:18 [place], [place] (BICILLIN 00 :00 Intramuscu Medi kleber L-A) lar, ONCE, Branch injection 1 dose, On 1.2 Million Thu06/21/21 Units at 0130, DIANE
Re ason for Anti-Infec tive: Documented Infection< br>Documen jameson Infection Site: Skin / Soft Tissue
Duration of Therapy: 10 days NaCl 0.9% No 1000mL at 999 Uni vers (NS) bolus 06-21 04-08 mL/hr, ity of infusion 06:30: 07:29 1,000 mL, [place] as 1,000 mL 00 :00 IV Medical Infusion, Branch ONCE, 1 dose, On Thu06/21/21 at 0130, DIANE dexamethaso No 10mg 10 mg, Uni vers ne sod phos 06-21 Slow IV ity of PF 06:30: 05:31 Push, [place] injection 00 :00 ONCE, 1 Medical 10 mg dose, On Branch Thu06/21/21 at 0130, 1 mL ketorolac 2021- No 30mg 30 mg, Unive rs (TORADOL) 06-21 Slow IV ity of injection 06:30: 05:31 Push, [place] 30 mg 00 :00 ONCE, 1 Medical dose, On Branch Thu06/21/21 at 0130, Routine
[employer] team member approving Restricted medication : MIL CASTRO maalox:diph No 15mL 15 mL, Uni vers enhydrAMINE 06-21 Oral, ity of :lidocaine 06:30: 05:32 ONCE, 1 [place] as 2 % viscous 00 :00 dose, On [facility] kleber 1:1:1 Thu06/21/21 Branch (FIRST-MOUT at 0130, [facility]) Routine oral suspension 15 mL cefTRIAXone No 1000mg 1,000 mg, Univers (ROCEPHIN) 08-02 IV ity of 1,000 mg in 23:30: 23:11 [place], [place] NaCl 0.9% 00 :00 ONCE, 1 Medical (NS) 50 mL dose, [facility] Bran ch MINI-BAG 08/02/20 at 1830, 50 [...] 08/02/20 at 1545, STAT cephALEXin 2020- No [id number] 500mg Take 1 Univers (KEFLEX) 08-02 capsule by ity of 500 mg 00:00: 04:59 mouth 3 [place] capsule 00 :00 (three) Medical times Branch daily for 7 days. butalbital- 2019-03 Yes [id number] 1{tbl} Take 1 Univers acetaminoph 2-18 tablet by ity of en-caff 00:00: mouth [place] 50-325-40 00 every 6 Medical mg tablet (six) Branch hours as needed for Pain (scale 7-10). butalbital- 2019-03 Yes [id number] 1{tbl} Take 1 Univers acetaminoph 2-18 tablet by ity of en-caff 00:00: mouth [place] 50-325-40 00 every 6 Medical mg tablet (six) Branch hours as needed for Pain (scale 7-10). butalbital- 2019-03 Yes [id number] 1{tbl} Take 1 Univers acetaminoph 2-18 tablet by ity of en-caff 00:00: mouth [place] 50-325-40 00 every 6 Medical mg tablet (six) Branch hours as needed for Pain (scale 7-10). butalbital- 2019-03 No [id number] 1{tbl} Take 1 Univers acetaminoph 2-18 08-21 tablet by it y of en-caff 00:00: 00:00 mouth [place] 50-325-40 00 :00 every 6 Medical mg tablet (six) Branch hours as needed for Pain (scale 7-10). diphenhydrA 2019-03 2020- No [id number] 25mg 25 mg, Univers MINE 0-12 10-12 Slow IV ity of (BENADRYL) 16:00: 15:00 Push, [place] injection 00 :00 ONCE, 1 Medical 25 mg dose, [facility] Branch 12/26/19 at 1100, STAT metoclopram 2019-03 2020- No [id number] 10mg 10 mg, Univers dash HCl 0-12 10-12 Slow IV ity of (REGLAN) 16:00: 14:59 Push, [place] injection 00 :00 ONCE, 1 Medical 10 mg dose, [facility] Branch 12/26/19 at 1100, DIANE lisinopriL 2019-03 Yes [id number] 10mg Take 1 U nivers 10 mg 0-12 tablet by ity of tablet 00:00: mouth at [place] 00 bedtime. Medical Branch lisinopriL 2019-03 Yes [id number] 10mg Take 1 U nivers 10 mg 0-12 tablet by ity of tablet 00:00: mouth at [place] 00 bedtime. Medical Branch lisinopriL 2019-03 Yes [id number] 10mg Take 1 U nivers 10 mg 0-12 tablet by ity of tablet 00:00: mouth at [place] 00 bedtime. Medical Branch lisinopriL 2019-03 Yes [id number] 10mg Take 1 U nivers 10 mg 0-12 tablet by ity of tablet 00:00: mouth at [place] 00 bedtime. Medical Branch lisinopriL 2019-03- No [id number] 10mg Take 1 Univers 10 mg 0-12 08-21 tablet by ity of tablet 00:00: 00:00 mouth at [place] 00 :00 bedtime. [facility] Branch ondansetron 2019- No 4mg 4 mg, Slow Univers (ZOFRAN 10-12 IV Push, ity of (PF)) 03:00: 01:47 ONCE, 1 [place] injection 4 00 :00 dose, Thu Med ical mg 10/12/19 at Branch 2200, DIANE cefTRIAXone No 1000mg 1,000 mg, Univers (ROCEPHIN) 10-12 IV ity of 1,000 mg in 02:15: 01:55 [place], [place] NaCl 0.9% 00 :00 ONCE, 1 Medical (NS) 50 mL dose, [facility] ch MINI-BAG 10/12/19 at 2115, 50 mL
Reas on for Anti-Infec tive: Documented Infection< br>Documen jameson Infection Site: Urine
D uration of Therapy: Other (see Comments) FENTanyl PF 2019- No 50ug 50 mcg, Un haley (SUBLIMAZE 10-12 Slow IV ity o f (PF)) 02:15: 01:24 Push, [place] injection 00 :00 ONCE, 1 Medical 50 mcg dose, [facility] 10/12/19 at 2115, Routine ketorolac 2019- No 15mg 15 mg, Unive rs (TORADOL) 10-12 Slow IV ity of injection 00:15: 23:27 Push, [place] 15 mg 00 :00 ONCE, 1 Medical dose, [facility] 10/12/19 at 1915, DIANE
Fa culty member approving Restricted medication : HEAVEN ENRIQUEZ tamsulosin 2020-0 Yes [id number] .4mg Take 1 U nivers 0.4 mg [...] Indication s: acute pain ondansetron 2020-0 Yes [id number] 4mg Take 1 Univers (ZOFRAN 7-29 tablet by ity of ODT) 4 mg 00:00: mouth [place] disintegrat 00 every 8 Medic al ing tablet (eight) Branch hours as needed for Nausea and Vomiting (N/V). naproxen 2020-0 Yes [id number] 500mg Take 1 Un haley 500 mg 7-29 tablet by ity of tablet 00:00: mouth 2 [place] 00 (two) Medical times Branch daily with meals. tamsulosin 2020-0 Yes [id number] .4mg Take 1 U nivers 0.4 mg [...] Indication s: acute pain ondansetron 2020-0 Yes [id number] 4mg Take 1 Univers (ZOFRAN 7-29 tablet by ity of ODT) 4 mg 00:00: mouth [place] disintegrat 00 every 8 Medic al ing tablet (eight) Branch hours as needed for Nausea and Vomiting (N/V). naproxen 2020-0 Yes [id number] 500mg Take 1 Un haley 500 mg 7-29 tablet by ity of tablet 00:00: mouth 2 [place] 00 (two) Medical times Branch daily with meals. tamsulosin 2020-0 Yes [id number] .4mg Take 1 U nivers 0.4 mg [...] Indication s: acute pain ondansetron 2020-0 Yes [id number] 4mg Take 1 Univers (ZOFRAN 7-29 tablet by ity of ODT) 4 mg 00:00: mouth [place] disintegrat 00 every 8 Medic al ing tablet (eight) Branch hours as needed for Nausea and Vomiting (N/V). naproxen 2020-0 Yes [id number] 500mg Take 1 Un haley 500 mg 7-29 tablet by ity of tablet 00:00: mouth 2 [place] 00 (two) Medical times Branch daily with meals. tamsulosin 2020-0 Yes [id number] .4mg Take 1 U nivers 0.4 mg [...] Indication s: acute pain ondansetron 2020-0 Yes [id number] 4mg Take 1 Univers (ZOFRAN 7-29 tablet by ity of ODT) 4 mg 00:00: mouth [place] disintegrat 00 every 8 Medic al ing tablet (eight) Branch hours as needed for Nausea and Vomiting (N/V). naproxen 2020-0 Yes [id number] 500mg Take 1 Un haley 500 mg 7-29 tablet by ity of tablet 00:00: mouth 2 [place] 00 (two) Medical times Branch daily with meals. tamsulosin 2020-0 Yes [id number] .4mg Take 1 U nivers 0.4 mg [...] Indication s: acute pain ondansetron 2020-0 Yes [id number] 4mg Take 1 Univers (ZOFRAN 7-29 tablet by ity of ODT) 4 mg 00:00: mouth [place] disintegrat 00 every 8 Medic al ing tablet (eight) Branch hours as needed for Nausea and Vomiting (N/V). naproxen 2019- Yes [id number] 500mg Take 1 Un haley 500 mg - tablet by ity of tablet 00:00: mouth 2 [place] 00 (two) Medical times Branch daily with meals. tamsulosin 2021- No [id number] .4mg Take 1 Univers 0.4 mg 24 [...] Indication s: acute pain ondansetron 2019-2021- No [id number] 4mg Take 1 Univers (ZOFRAN 10-11- tablet by ity of ODT) 4 mg 00:00: 00:00 mouth [place] disintegrat 00 :00 every 8 Medic al ing tablet (eight) Branch hours as needed for Nausea and Vomiting (N/V). naproxen 2021- No [id number] 500mg Take 1 U nivers 500 mg 10-11 tablet by ity of tablet 00:00: 00:00 mouth 2 [place] 00 :00 (two) Medical times Branch daily with meals. cephALEXin 2019- No [id number] 500mg Take 1 Univers 500 mg 10-11- capsule by ity of capsule 00:00: 04:59 mouth 4 [place] 00 :00 (four) Medical times Branch daily for 7 days. amoxicillin 2019-2019- No [id number] 875mg Take 1 Univers 875 mg 07-14 tablet by ity of tablet 00:00: 04:59 mouth 2 [place] 00 :00 (two) Medical times Branch daily for 10 days. predniSONE 2019- 2020- No [id number] 20mg Take 1 Univers 20 mg 07-14 [id number] tablet by ity of tablet 00:00: 04:59 mouth 2 [place] 00 :00 (two) Medical times Branch daily for 5 days. traMADol 2018-03 Yes [id number] 50mg Take 1 Univers (ULTRAM) 50 2-26 [id number] tablet by i ty of mg tablet 00:00: mouth [place] 00 every 8 Medical (eight) Branch hours as needed for Pain (scale 4-6). cyclobenzap 2018-03 Yes [id number] 5mg Take 1 Univers rine 5 mg 2-26 [id number] tablet by ity of tablet 00:00: mouth 3 [place] 00 (three) Medical times Branch daily. traMADol 2018-03 Yes [id number] 50mg Take 1 Univers (ULTRAM) 50 2-26 [id number] tablet by i ty of mg tablet 00:00: mouth [place] 00 every 8 Medical (eight) Branch hours as needed for Pain (scale 4-6). cyclobenzap 2018-03 Yes [id number] 5mg Take 1 Univers rine 5 mg 2-26 [id number] tablet by ity of tablet 00:00: mouth 3 [place] 00 (three) Medical times Branch daily. traMADol 2018-03 Yes [id number] 50mg Take 1 Univers (ULTRAM) 50 2-26 [id number] tablet by i ty of mg tablet 00:00: mouth [place] 00 every 8 Medical (eight) Branch hours as needed for Pain (scale 4-6). cyclobenzap 2018-03 Yes [id number] 5mg Take 1 Univers rine 5 mg 2-26 [id number] tablet by ity of tablet 00:00: mouth 3 00 (three) Medical times Branch daily. traMADol 2018-03 Yes [id number] 50mg Take 1 Univers (ULTRAM) 50 2-26 [id number] tablet by i ty of mg tablet 00:00: mouth [place] 00 every 8 Medical (eight) Branch hours as needed for Pain (scale 4-6). cyclobenzap 2018-03 Yes [id number] 5mg Take 1 Univers rine 5 mg 2-26 [id number] tablet by ity of tablet 00:00: mouth 3 [place] 00 (three) Medical times Branch daily. traMADol 2018-03 Yes [id number] 50mg Take 1 Univers (ULTRAM) 50 2-26 [id number] tablet by i ty of mg tablet 00:00: mouth [place] 00 every 8 Medical (eight) Branch hours as needed for Pain (scale 4-6). cyclobenzap 2018-03 Yes [id number] 5mg Take 1 Univers rine 5 mg 2-26 [id number] tablet by ity of tablet 00:00: mouth 3 [place] 00 (three) Medical times Branch daily. traMADol 2018-03 Yes [id number] 50mg Take 1 Univers (ULTRAM) 50 2-26 [id number] tablet by i ty of mg tablet 00:00: mouth [place] 00 every 8 Medical (eight) Branch hours as needed for Pain (scale 4-6). cyclobenzap 2018-03 Yes [id number] 5mg Take 1 Univers rine 5 mg 2-26 [id number] tablet by ity of tablet 00:00: mouth 3 [place] 00 (three) Medical times Branch daily. traMADol 2018-03 Yes [id number] 50mg Take 1 Univers (ULTRAM) 50 2-26 [id number] tablet by i ty of mg tablet 00:00: mouth [place] 00 every 8 Medical (eight) Branch hours as needed for Pain (scale 4-6). cyclobenzap 2018-03 Yes [id number] 5mg Take 1 Univers rine 5 mg 2-26 [id number] tablet by ity of tablet 00:00: mouth 3 [place] 00 (three) Medical times Branch daily. traMADol 2018-03 Yes [id number] 50mg Take 1 Univers (ULTRAM) 50 2-26 [id number] tablet by i ty of mg tablet 00:00: mouth [place] 00 every 8 Medical (eight) Branch hours as needed for Pain (scale 4-6). cyclobenzap 2018-03 Yes [id number] 5mg Take 1 Univers rine 5 mg 2-26 [id number] tablet by ity of tablet 00:00: mouth 3 [place] 00 (three) Medical times Branch daily. traMADol 2018-03- No [id number] 50mg Take 1 Univers (ULTRAM) 50 2-26 08-21 [id number] tablet by ity of mg tablet 00:00: 00:00 mouth [place] 00 :00 every 8 Medical (eight) Branch hours as needed for Pain (scale 4-6). cyclobenzap 2018-03- No [id number] 5mg Take 1 Univers rine 5 mg 2-26 08-21 [id number] tablet by it y of tablet 00:00: 00:00 mouth 3 [place] 00 :00 (three) Medical times Branch daily. chlorphenir 2019-0 Yes [id number] 4mg Take 1 Univers amine 1-10 tablet by ity of (CHLORTABS) 00:00: mouth [place] 4 mg tablet 00 every 6 Medic al (six) Branch hours as needed for Allergies. chlorphenir 2019-0 Yes [id number] 4mg Take 1 Univers amine 1-10 tablet by ity of (CHLORTABS) 00:00: mouth [place] 4 mg tablet 00 every 6 Medic al (six) Branch hours as needed for Allergies. chlorphenir 2019-0 Yes [id number] 4mg Take 1 Univers amine 1-10 tablet by ity of (CHLORTABS) 00:00: mouth [place] 4 mg tablet 00 every 6 Medic al (six) Branch hours as needed for Allergies. chlorphenir 2019-0 Yes [id number] 4mg Take 1 Univers amine 1-10 tablet by ity of (CHLORTABS) 00:00: mouth [place] 4 mg tablet 00 every 6 Medic al (six) Branch hours as needed for Allergies. chlorphenir 2019-0 Yes [id number] 4mg Take 1 Univers amine 1-10 tablet by ity of (CHLORTABS) 00:00: mouth [place] 4 mg tablet 00 every 6 Medic al (six) Branch hours as needed for Allergies. chlorphenir 2019-0 Yes [id number] 4mg Take 1 Univers amine 1-10 tablet by ity of (CHLORTABS) 00:00: mouth [place] 4 mg tablet 00 every 6 Medic al (six) Branch hours as needed for Allergies. chlorphenir 2019-0 Yes [id number] 4mg Take 1 Univers amine 1-10 tablet by ity of (CHLORTABS) 00:00: mouth [place] 4 mg tablet 00 every 6 Medic al (six) Branch hours as needed for Allergies. chlorphenir 2019-0 Yes [id number] 4mg Take 1 Univers amine 1-10 tablet by ity of (CHLORTABS) 00:00: mouth [place] 4 mg tablet 00 every 6 Medic al (six) Branch hours as needed for Allergies. chlorphenir 2019-0 2022- No [id number] 4mg Take 1 Univers amine 1-10 08-21 [...] vers (TESSALON 4-26 capsule by ity of [employer]) 100 00:00: mouth 3 [place] as mg [...] 1 Uni vers (TESSALON 4-26 capsule by [employer]) 100 00:00: mouth 3 [place] as mg [...] 1 Uni vers (TESSALON 4-26 capsule by [employer]) 100 00:00: mouth 3 [place] as mg [...] 1 Uni vers (TESSALON 4-26 capsule by [employer] of [employer]) 100 00:00: mouth 3 [place] as mg [...] 1 Uni vers (TESSALON 4-26 capsule by [employer]) 100 00:00: mouth 3 [place] as mg [...] 1 Uni vers (TESSALON 4-26 capsule by [employer]) 100 00:00: mouth 3 [place] as mg [...] 1 Uni vers (TESSALON 4-26 capsule by [employer]) 100 00:00: mouth 3 [place] as mg capsule 00 (three) Medica l times Branch daily as needed for Cough. benzonatate 2021- No 100mg Take 1 Un haley (TESSALON 4-26 08-21 capsule by [employer]) 100 00:00: 00:00 mouth [place] [...] Source Systolic blood 2021-11-29 14:25:00 130 mm[facility]Hg] [facility] Diastolic blood 2021-11-29 14:25:00 78 mm[facility]Hg] [facility] Heart rate 2021-11-29 14:25:00 81 /min [facility] Body temperature 2021-11-29 14:25:00 36.5 Padmini [facility] ersity of [place] [facility] Respiratory rate 2021-11-29 14:25:00 22 /min Univ ers[facility] [place] [facility] Body height 2021-11-29 14:25:00 157.5 cm Universi ty [facility] [place] [facility] Body weight 2021-11-29 14:25:00 99.791 kg Universi ty of [place] [facility] BMI 2021-11-29 14:25:00 40.24 kg/m2 Universi ty [facility] [place] [facility] Oxygen saturation in 2021-11-29 14:25:00 99 /min University of Arterial blood by [place] [employer] kleber Pulse oximetry Branch Systolic blood 2021-11-03 11:27:00 154 mm[Hg] Univer sity of pressure [place] [facility] Diastolic blood 2021-11-03 11:27:00 111 mm[Hg] Unive rsity of pressure [place] [facility] Heart rate 2021-11-03 11:27:00 90 /min Universi ty of [place] [facility] Body temperature 2021-11-03 11:27:00 36.72 Padmini Univ ersity [facility] [place] [facility] Respiratory rate 2021-11-03 11:27:00 20 /min Univ [facility] [place] [facility] Body height 2021-11-03 11:27:00 157.5 cm Universi ty [facility] [place] [facility] Body weight 2021-11-03 11:27:00 99.791 kg Universi ty [facility] [place] [facility] BMI 2021-11-03 11:27:00 40.24 kg/m2 Universi ty of [place] [facility] Oxygen saturation in 2021-11-03 11:27:00 96 /min University of Arterial blood by [place] [employer]leber Pulse oximetry Branch Systolic blood 2021-06-21 07:00:00 102 mm[Hg] Univer sity of pressure [place] [facility] Diastolic blood 2021-06-21 07:00:00 70 mm[Hg] Unive rsity of pressure [place] [facility] Heart rate 2021-06-21 07:00:00 83 /min Universi ty [facility] [place] [facility] Body temperature 2021-06-21 07:00:00 36.22 Padmini Univ ers[facility] [place] [facility] Respiratory rate 2021-06-21 07:00:00 16 /min Univ ers[facility] [place] [facility] Oxygen saturation in 2021-06-21 07:00:00 95 /min University of Arterial blood by [facility] kleber Pulse oximetry Branch Body height 2021-06-21 04:32:00 157.5 cm Universi ty of [place] [facility] Body weight 2021-06-21 04:32:00 90.719 kg Universi ty [facility] [place] [facility] BMI 2021-06-21 04:32:00 36.58 kg/m2 Universi ty [facility] [place] [facility] Systolic blood 2020-08-02 22:00:00 142 mm[Hg] Univer sity of pressure [place] [facility] Diastolic blood 2020-08-02 22:00:00 104 mm[Hg] Unive rsity of pressure [place] [facility] Heart rate 2020-08-02 22:00:00 86 /min Universi ty [facility] [place] [facility] Respiratory rate 2020-08-02 22:00:00 20 /min Univ ers[facility] [place] [facility] Oxygen saturation in 2020-08-02 22:00:00 100 /min University of Arterial blood by [facility] Pulse oximetry Branch Body temperature 2020-08-02 20:39:00 37.22 Padmini Univ ersity of [place] [facility] Body height 2020-08-02 20:39:00 157.5 cm [facility]i ty [facility] [place] [facility] Body weight 2020-08-02 20:39:00 104.327 kg [facility] [place] [facility] BMI 2020-08-02 20:39:00 42.07 kg/m2 [facility] [place] [facility] Systolic blood 2020-03-03 01:11:00 137 mm[Hg] Univer sity of pressure [place] [facility] Diastolic blood 2020-03-03 01:11:00 90 mm[Hg] Unive rsity of pressure [place] [facility] Heart rate 2020-03-03 01:11:00 87 /min Universi ty [facility] [place] [facility] Body temperature 2020-03-03 01:11:00 37.06 Padmini Univ ers[facility] [place] [facility] Respiratory rate 2020-03-03 01:11:00 16 /min Univ [facility] [place] [facility] Body weight 2020-03-03 01:11:00 104.327 kg Universi [facility] [place] [facility] BMI 2020-03-03 01:11:00 40.74 kg/m2 [facility] [place] [facility] Oxygen saturation in 2020-03-03 01:11:00 98 /min University of Arterial blood by [facility] Pulse oximetry Branch Systolic blood 2019-12-26 15:00:00 154 mm[Hg] Univer sity of pressure [place] [facility] Diastolic blood 2019-12-26 15:00:00 109 mm[Hg] Unive rsity of pressure [place] [facility] Heart rate 2019-12-26 15:00:00 63 /min Universi ty [facility] [place] [facility] Respiratory rate 2019-12-26 15:00:00 20 /min Univ [facility] [place] [facility] [place] Oxygen saturation in 2019-12-26 15:00:00 95 /min University of Arterial blood by [facility] Pulse oximetry Branch Body temperature 2019-12-26 14:05:00 37 Padmini [facility] ersity of [place] [facility] [place] Body weight 2019-12-26 14:05:00 99.791 kg Universi ty [facility] [place] [facility] [place] BMI 2019-12-26 14:05:00 38.97 kg/m2 [facility] [place] [facility] Systolic blood 2019-10-13 02:00:00 143 mm[Hg] Univer sity of pressure [place] [facility] [place] Diastolic blood 2019-10-13 02:00:00 84 mm[Hg] Unive rsity of pressure [place] [facility] [place] Heart rate 2019-10-13 02:00:00 77 /min Universi ty [facility] [place] [facility] Respiratory rate 2019-10-13 02:00:00 18 /min Univ [facility] [place] [facility] Oxygen saturation in 2019-10-13 02:00:00 98 /min University of Arterial blood by [facility] Pulse oximetry Branch Body temperature 2019-10-12 23:08:00 37.56 Padmini [facility] ersity of [facility] Body height 2019-10-12 23:08:00 160 cm Universi ty of [place] [facility] [place] Body weight 2019-10-12 23:08:00 111.585 kg [facility] [place] [facility] BMI 2019-10-12 23:08:00 43.58 kg/m2 [facility] [place] [facility] Procedures Procedure Date / Time Performing Clinician Source Performed ED SPLINT APPLICATION 2021-11-29 15:24:05 Nuzhat Leo [facility] XR FOOT <3 VW LEFT 2021-11-29 14:51:21 Nuzhat Leo y [facility] CONSENT/REFUSAL FOR 2021-11-29 14:22:07 Doctor Unassigned, No Un [facility] DIAGNOSIS AND TREATMENT Name Medical Branch CONSENT/REFUSAL FOR 2021-11-03 11:24:14 Doctor Unassigned, No [facility] [place] DI[facility] TREATMENT Name Medical Branch CT SOFT TISSUE NECK W 2021-06-21 06:09:24 Mil Castro [facility] [place] CONTRAST Medical Branch POCT TEST 2021-06-21 05:42:00 Mil Castro [facility] [place] [facility] COMP. METABOLIC PANEL 2021-06-21 05:32:00 Mil Castro [facility] [place] ([id number]) Medical Branch CBC WITH DIFF 2021-06-21 05:32:[address] [facility] [place] RAPID STREP SCREEN FOR 2021-06-21 04:58:00 [facility] NOTICE OF PRIVACY 2021-06-21 04:25:48 Doctor Un[facility]igned, No [facility] Medical Branch CONSENT/REFUSAL FOR 2021-06-21 04:24:53 Doctor Unassigned, No [facility] [place] DIAGNOSIS AND TREATMENT Name Medical Branch US FIRST 2020-08-02 21:44:[address] [facility] TRIMESTER LESS THAN 14 Medical B ranch WEEKS WITH TRANSVAGINAL COMP. METABOLIC PANEL 2020-08-02 21:15:00 Nuzhat Leo [facility] ([id number]) Medical [place] TOTAL BETA HCG ASSAY 2020-08-02 21:15:00 Nuzhat Leo [facility] Medical [place] CBC WITH DIFF 2020-08-02 21:15:00 Nuzhat Leo [place] [facility] Medical Branch URINALYSIS 2020-08-02 21:15:00 Nuzhat Leo [place] o [facility] POCT TEST 2020-08-02 21:15:[address] [facility] [place] NOTICE OF PRIVACY 2020-03-03 01:02:28 [facility] CONSENT/REFUSAL FOR 2020-03-03 01:01:54 Doctor [facility]igned, [place] [facility] [place] [facility] Medical Branch XR CHEST 1 VW 2019-12-26 14:30:00 Singer [facility] LIPASE 2019-12-26 14:22:00 Singer [facility] MAGNESIUM 2019-12-26 14:22:00 Singer [facility] TROPONIN I 2019-12-26 14:22:00 Singer [facility] COMP. METABOLIC PANEL 2019-12-26 14:22:00 Singer [facility] ([id number]) Medical Branch CBC WITH DIFF 2019-12-26 14:22:00 Singer [facility] PROTHROMBIN TIME / INR 2019-12-26 14:22:00 Singer [facility] N-TERMINAL PRO-BNP 2019-12-26 14:22:00 Singer [facility] EKG-12 LEAD 2019-12-26 14:10:43 Singer [facility] CONSENT/REFUSAL FOR 2019-12-26 13:54:29 Doctor [facility]igned, No [facility] Branch CT ABDOMEN PELVIS WO 2019-10-13 00:02:24 Heaven [facility] COMP. METABOLIC PANEL 2019-10-12 23:23:00 Heaven Enriquez [facility] ([id number]) [facility] CBC WITH DIFF 2019-10-12 23:23:00 Heaven Enriquez [facility] URINALYSIS 2019-10-12 23:23:00 Heaven Enriquez [facility] POCT TEST 2019-10-12 23:23:00 Heaven Enriquez [facility] NOTICE OF PRIVACY 2019-10-12 23:03:08 Doctor Unassigned, No Univ [facility] PRACTICES Name Medical Branch CONSENT/REFUSAL FOR 2019-10-12 23:02:53 [facility] Name Medical Branch Encounters Start End Encounter Admission Attending Care Care Encounter Source Date/Time Date/Time Type Type Clinicians Facility Department ID 2021-11-29 2021-11-29 Emergency X SINGER [facility] ERT [id number] Univers 09:27:00 10:29:00 NUZHAT itrosie [facility] 2021-11-29 2021-11-29 Emergency [facility] [id number] Univers 09:27:00 10:29:00 Nuzhat LARA 350.1.13.10 i ty of [facility] 4.2.7.2.686 [facility] [phone] [address] 2021-11-03 2021-11-03 Emergency [facility] [id number] Univers 06:32:00 06:58:00 CARLITA itrosie [facility] 2021-11-03 2021-11-03 Emergency [facility] [id number] Univers 06:32:00 06:58:00 Carlita Flores MARCO 350.1.13.10 ity of [place] 4.2.7.2.686 [facility] [phone] [address] 2021-06-20 2021-06-21 Emergency [facility] [id number] Univers 23:37:00 02:37:00 [facility]-06-20 2021-06-21 [facility] [id number] Univers 23:37:00 02:37:00 Xiomarajaysonafshin Aziza LARA 350.1.13.10 ity of [facility] 4.2.7.2.686 [facility] [id number] [address] 2020-08-02 2020-08-02 Emergency [facility] [id number] Univers 15:40:00 18:21:00 Nuzhat Lara 350.1.13.10 i ty of [place] 4.2.7.2.686 [facility] [phone] [address] 2020-08-02 2020-08-02 Emergency X [facility] ERT [id number] Univers 15:23:00 15:23:00 ity [facility] 2020-03-02 2020-03-02 Emergency [facility] [id number] Univers 19:15:00 20:01:00 Zack Lara 350.1.13.10 i ty of [place] 4.2.7.2.686 [facility] [id number] [address] 2020-03-02 2020-03-02 Emergency [facility]RT [id number] Univers 19:15:00 19:15:00 ZACK ity of [facility] 2019-12-26 2019-12-26 Emergency [facility] [id number] Univers 08:57:00 11:20:00 Nuzhat Lara 350.1.13.10 i ty of [place] 4.2.7.2.686 [facility] [id number] [address] 2019-12-26 2019-12-26 Emergency X [facility] ERT [id number] Univers 08:57:00 08:57:00 ity of [facility] 2019-10-12 2019-10-12 Emergency [facility] [id number] Univers 18:10:58 21:31:00 Heaven Lara 350.1.13.10 i ty of [place] 4.2.7.2.686 [facility] [id number] [address] 2019-10-12 2019-10-12 Emergency X [facility] ERT [id number] Univers 18:10:58 18:10:58 HEAVEN ity of [facility] 2019-10-12 2019-10-12 Orders Doctor [facility] [id number] Univers 00:00:00 00:00:00 Only Unassigned, [place] 350.1.13.10 ity of [facility] 4.2.7.2.686 Mina [id number] [address] 2019-07-19 2019-07-19 Telephone [facility] [id number] Univers 00:00:00 00:00:00 Aminata Day LEAGUE 350.1.13.10 ity of [facility] 4.2.7.2.686 [facility] PEDIATRIC [phone] [facility] AND [address] [place] [address] E CLINIC 2019-07-15 2019-07-15 Patient Doctor CHAY [id number] Univers 00:00:00 00:00:00 Secure Msg Unassigned, [place] 350.1.13.10 ity of [facility] 4.2.7.2.686 Mina as [phone] [facility] 019 Branch Results Test Description Test Time [...] 33.7 g/dL 31.6-35.1 RDW-SD (test code = 81463-4) 43.1 fL 39.0-49.9 RDW-CV (test code = 788-0) 13.3 % 12.0-15.5 PLT (test code = 777-3) See_Comment H [Au tomated message] The system which ge nerated this result transmit jameson reference range: 166 - 35 8 10*3/?L. The reference range was not used to interpret th is result as normal/abnormal . MPV (test code = 41159-9) 9.0 fL 9.5-12.9 L NRBC/100 WBC (test code = See_Comment [ Automated message] The [id number]) system which [employer] nerated this result transmit jameson reference range: 0.0 - 10 .0 /100 WBCs. The reference r denita was not used to interpr et this result as normal/abnor mal. NRBC x10^3 (test code = <0.01 See_Comment [Au tomated message] The 7725578935) system which [employer] nerated this result transmit jameson reference range: 10*3/?L. The reference range was not u sed to interpret this result as normal/abnormal . GRAN MAT (NEUT) % (test code 87.9 % = 770-8) IMM GRAN % (test code = 0.90 % 2057973323) LYMPH % (test code = 736-9) 5.5 % MONO % (test code = 5905-5) 3.7 % EOS % (test code = 713-8) 1.6 % BASO % (test code = 706-2) 0.4 % GRAN MAT x10^3(ANC) (test 20.78 10*3/uL 1.88-7.09 H code = 4056765478) IMM GRAN x10^3 (test code = 0.21 10*3/uL 0.00-0.06 H 9129727127) LYMPH x10^3 (test code = 1.29 10*3/uL 1.32-3.29 L 731-0) MONO x10^3 (test code = 0.88 10*3/uL 0.33-0.92 742-7) EOS x10^3 (test code = 0.37 10*3/uL 0.03-0.39 711-2) BASO x10^3 (test code = 0.09 10*3/uL 0.01-0.07 H 704-7) Lab Interpretation (test Abnormal code = 29030-4) [facility]. METABOLIC PANEL ([id number])2021-06-21 06:19:31 Test Item Value Reference Range Interpretation Comments NA (test code = 135 mmol/L 135-145 2522300515) K (test code = 3.4 mmol/L 3.5-5.0 L 2115134420) CL (test code = 103 mmol/L 98-108 6035665982) CO2 TOTAL (test code = 23 mmol/L 23-31 3933231618) AGAP (test code = 2-16 5178743744) BUN (test code = 7 mg/dL 7-23 8983771779) GLUCOSE (test code = 174 mg/dL 70-110 H 9030099633) CREATININE (test code = 0.68 mg/dL 0.50-1.04 2608627800) TOTAL BILI (test code = 0.5 mg/dL 0.1-1.7 0032313184) CALCIUM (test code = 9.4 mg/dL 8.6-10.6 2950823650) T PROTEIN (test code = 6.9 g/dL 6.3-8.2 6174711925) ALBUMIN (test code = 3.9 g/dL 3.5-5.0 4530132847) ALK PHOS (test code = 89 U/L 34-122 6240150109) ALTv (test code = 12 U/L 5-35 2-6) AST(SGOT) (test code = 15 U/L 13-40 8075232538) eGFR (test code = mL/min/1.73m2 6089948716) WILFRID (test code = WILFRID) Association of [...] tests). Lab Interpretation Abnormal (test code = 05345-9) [id number] 05:[facility]:00 Test Item Value Reference Range Interpretation Comments POCT PREG (test code = 1605) neg On board controls acceptable with yes C Line (test code = 3574) POCT PREG LOT # (test code = 3575) [id number] POCT PREG TEST DATE (test 05/13/2022 code = 3576) Lab Interpretation (test code = Normal 04894-9) [facility] BETA HCG [id number] 22:24:42 Test Item Value Reference Range Interpretation Comments BETA HCG (test See_Comment [Automated m essage] code = The system [employer] 6743316052) generated this result transmit jameson reference range : Non- fe male and male patien ts: <5 mIU/mL. The reference range was not used to interpret this result as normal/abnormal . WILFRID (test code Gestational Age ? ? = WILFRID) ?Range (mIU/mL) 1-10 ?Weeks ?75-25911910-61 Weeks ?55595-93779093-93 Weeks ?0962-11437360-26 Weeks ?6698-522295 Biotin has been reported to cause a negative bias, interpret results relative to patient's use of biotin. [facility] 21:46:21 Test Item Value Reference Range Interpretation Comments APPEARANCE (test code = Clear Clear 9854869642) COLOR (test code = Yellow Yellow 8893876892) PH (test code = 4.8-8.0 2287776186) SP GRAVITY (test code = 1.003-1.030 9862198203) GLU U QUAL (test code = Normal Normal 2523543148) BLOOD (test code = 3+ Negative A 8804729311) KETONES (test code = Negative Negative 3089070254) PROTEIN (test code = Negative Negative 2887-8) UROBILIN (test code = Normal Normal 4203825155) BILIRUBIN (test code = Negative Negative 4893255964) NITRITE (test code = Negative Negative 8006069202) LEUK CATHY (test code = 250/uL Negative A 8386900572) RBC/HPF (test code = See_Comment H [Autom ated message] 4953289681) The system [employer] generated this result transmitted ref erence range: 0 - 3 HP F. The reference range was not used to int erpret this result as normal/abnormal . WBC/HPF (test code = See_Comment H [Autom ated message] 8771660793) The system [employer] generated this result transmitted ref erence range: 0 - 5 HP F. The reference range was not used to int erpret this result as normal/abnormal . BACTERIA (test code = Negative Negative 0344799543) MUCOUS (test code = Slight Negative LPF A 2755019977) SQ EPITH (test code = HPF 7053812709) Lab Interpretation (test Abnormal code = 28005-3) [facility]. METABOLIC PANEL (63734)2020-08-02 21:42:04 Test Item Value Reference Range Interpretation Comments NA (test code = 139 mmol/L 135-145 6441485897) K (test code = 3.3 mmol/L 3.5-5.0 L 2917766145) CL (test code = 107 mmol/L 98-108 2115182223) CO2 TOTAL (test code = 26 mmol/L 23-31 3800008381) AGAP (test code = 2-16 8241876794) BUN (test code = 7 mg/dL 7-23 0081217818) GLUCOSE (test code = 102 mg/dL 70-110 8720020304) CREATININE (test code = 0.61 mg/dL 0.50-1.04 2241632525) TOTAL BILI (test code = 0.3 mg/dL 0.1-1.0 1576589065) CALCIUM (test code = 9.9 mg/dL 8.6-10.6 1966999238) T PROTEIN (test code = 7.0 g/dL 6.3-8.2 2602888497) ALBUMIN (test code = 4.2 g/dL 3.5-5.0 9168446105) ALK PHOS (test code = 77 U/L 34-122 8824639880) ALTv (test code = 13 U/L 5-35 1742-6) AST(SGOT) (test code = 16 U/L 13-40 7217908213) eGFR (test code = mL/min/1.73m2 6384637874) WILFRID (test code = WILFRID) Association of [...] tests). Lab Interpretation Abnormal (test code = 86157-4) [facility] WITH [id number] 21:30:00 Test Item Value Reference Range Interpretation Comments WBC (test code = See_Comment [Automated 9790-2) message] The sy stem which generated this [...] RDW-SD (test code = 43.1 fL 39.0-49.9 08863-5) RDW-CV (test code = 13.0 % 12.0-15.5 788-0) PLT (test code = See_Comment H [Automated 777-3) message] The sy stem which generated this result transmitted reference range : 166 - 358 10*3/ ?L. The reference r denita was not used to interpret this result as normal/abnormal . MPV (test code = 9.2 fL 9.5-12.9 L 66401-7) NRBC/100 WBC (test See_Comment [Automat ed code = 2979481126) message] The system which generated this result transmitted reference range : 0.0 - 10.0 /100 WBCs. The refer ence range was not u sed to interpret th is result as normal/abnormal . NRBC x10^3 (test code <0.01 See_Comment [Auto mated = 8059440144) message] The s ystem which generated this result transmitted reference range : 10*3/?L. The reference range was not used to interpret this result as normal/abnormal . GRAN MAT (NEUT) % 57.4 % (test code = 770-8) IMM GRAN % (test code 0.30 % = 0687924916) LYMPH % (test code = 31.0 % 736-9) MONO % (test code = 6.6 % 5905-5) EOS % (test code = 4.2 % 713-8) BASO % (test code = 0.5 % 706-2) GRAN MAT x10^3(ANC) 5.96 10*3/uL 1.88-7.09 (test code = 9578461214) IMM GRAN x10^3 (test 0.03 10*3/uL 0.00-0.06 code = 8210359205) LYMPH x10^3 (test code 3.21 10*3/uL 1.32-3.29 = 731-0) MONO x10^3 (test code 0.68 10*3/uL 0.33-0.92 = 742-7) EOS x10^3 (test code = 0.43 10*3/uL 0.03-0.39 H 711-2) BASO x10^3 (test code 0.05 10*3/uL 0.01-0.07 = 704-7) Lab Interpretation Abnormal (test code = 06202-5) [facility] [id number] 21:15:00 Test Item Value Reference Range Interpretation Comments POCT PREG (test code = 1605) positive On board controls acceptable with C present Line (test code = 3574) Lab Interpretation (test code = Normal 23321-8) [facility] CenterPROTHROMBIN TIME / [id number] 14:59:00 Test Item Value Reference Range Interpretation [...] tions. Lab Interpretation (test Normal code = 40849-1) [facility] CenterTROP[facility]IN [id number] 14:57:00 Test Item Value Reference Range Interpretation Comments TROPONIN I (test <0.012 See_Comment [Automated code = 2433008692) message] The system which generated this result [...] ? Lab Interpretation Normal (test code = 02337-7) [facility] Center[facility]-TERMINAL [id number] 14:55:00 Test Item Value Reference Range Interpretation Comments NT-proBNP (test code 50 pg/mL See_Comment [Autom ated = 2013183949) message] The system which generated this result transmitted reference range : <=125. The reference range was not used to interpret this result as normal/abnormal . WILFRID (test code = WILFRID) Biotin has been reported to cause a negative bias, interpret results relative to patient's use of biotin. Lab Interpretation Normal (test code = 15354-3) [facility]OLIC PANEL (38504)2019-12-26 14:46:00 Test Item Value Reference Range Interpretation Comments NA (test code = 137 mmol/L 135-145 6497172218) K (test code = 3.8 mmol/L 3.5-5 6447497943) CL (test code = 107 mmol/L 98-108 8377755048) CO2 TOTAL (test code = 26 mmol/L 23-31 3740510651) AGAP (test code = 2-16 3283726101) BUN (test code = 6 mg/dL 7-23 L 9807582596) GLUCOSE (test code = 111 mg/dL 70-110 H 7588251428) CREATININE (test code = 0.56 mg/dL 0.5-1.04 3937965147) TOTAL BILI (test code = 0.4 mg/dL 0.1-1.6 2359278865) CALCIUM (test code = 9.7 mg/dL 8.6-10.6 1377659717) T PROTEIN (test code = 7.2 g/dL 6.3-8.2 6682300249) ALBUMIN (test code = 4.2 g/dL 3.5-5 0987917989) ALK PHOS (test code = 74 U/L 34-122 0319367942) ALTv (test code = 18 U/L 5-35 1742-6) AST(SGOT) (test code = 20 U/L 13-40 5806959634) eGFR Calculation mL/min/1.73m2 (Non-) (test code = 7864465412) eGFR Calculation mL/min/1.73m2 () (test code = 7079135553) WILFRID (test code = WILFRID) Association of [...] tests). Lab Interpretation Abnormal (test code = 78850-5) [facility]UM2020-10-12 14:46:00 Test Item Value Reference Range Interpretation Comments MAGNESIUM (test code = 1908665908) 2.0 mg/dL 1.7-2.4 Lab Interpretation (test code = Normal 57541-9) [facility] CenterXR CHEST 1 [id number] 14:45:03EXAM: XR CHEST 1 VW HISTORY: Chest pain COMPARISON: None. FINDINGS: The heart and great vessels are normal and the lungs are well expanded andclear. ? [facility], Radiant Results Inft User - 12/26/2019 9:46 AM CDTEXAM: XR CHEST 1 VWHISTORY: Chest pain COMPARISON: None.FINDINGS:The heart and great vessels are normal and the lungs are well expanded andclear.[facility] CenterLIP[facility], SERUM 2019-12-26 14:45:00 Test Item Value Reference Range Interpretation Comments LIPASE (test code = 4916089837) 87 U/L 0-220 Lab Interpretation (test code = Normal 81608-3) [facility] WITH [id number] 14:29:00 Test Item Value Reference Range Interpretation Comments WBC (test code = See_Comment [Automated 1257-2) message] The sy stem which generated this result transmitted reference range : 4.30 - 11.10 10*3/?L. The reference range was not used to interpret this result as normal/abnormal . RBC (test code = See_Comment [Automated 958-8) message] The sy stem which generated this [...] RDW-SD (test code = 42.7 fL 39-49.9 56669-8) RDW-CV (test code = 12.9 % 12-15.5 788-0) PLT (test code = See_Comment H [Automated 777-3) message] The sy stem which generated this result transmitted reference range : 166 - 358 10*3/ ?L. The reference r denita was not used to interpret this result as normal/abnormal . MPV (test code = 9.0 fL 9.5-12.9 L 81007-8) NRBC/100 WBC (test See_Comment [Automat ed code = 0493781885) message] The system which generated this result transmitted reference range : 0.0 - 10.0 /100 WBCs. The refer ence range was not u sed to interpret th is result as normal/abnormal . NRBC x10^3 (test code <0.01 See_Comment [Auto mated = 8822566865) message] The s ystem which generated this result transmitted reference range : 10*3/?L. The reference range was not used to interpret this result as normal/abnormal . GRAN MAT (NEUT) % 64.4 % (test code = 770-8) IMM GRAN % (test code 0.40 % = 4175380495) LYMPH % (test code = 24.8 % 736-9) MONO % (test code = 6.8 % 5905-5) EOS % (test code = 3.0 % 713-8) BASO % (test code = 0.6 % 706-2) GRAN MAT x10^3(ANC) 5.43 10*3/uL 1.88-7.09 (test code = 7844426492) IMM GRAN x10^3 (test 0.03 10*3/uL 0-0.06 code = 2024972991) LYMPH x10^3 (test code 2.09 10*3/uL 1.32-3.29 = 731-0) MONO x10^3 (test code 0.57 10*3/uL 0.33-0.92 = 742-7) EOS x10^3 (test code = 0.25 10*3/uL 0.03-0.39 711-2) BASO x10^3 (test code 0.05 10*3/uL 0.01-0.07 = 704-7) Lab Interpretation Abnormal (test code = 12587-6) [facility] WO [id number] 02:15:33 Nonobstructing left UVJ calculus measuring 3 [...] of unenhancedtechnique. Normal hepatic attenuation. Enlarged liver yewrtawp85 cm in thecraniocaudal dimension. Changes of a [...] reviewed this study and agree with theabove report.[facility] CenterURINALYSIS2020-07-29 23:56:00 Test Item Value Reference Range Interpretation Comments APPEARANCE (test code = Hazy Clear A 4336781385) COLOR (test code = Yellow Yellow 6644277215) PH (test code = 4.8-8.0 3982016003) SP GRAVITY (test code = 1.003-1.030 2422074994) GLU U QUAL (test code = Normal Normal 9014774549) BLOOD (test code = 3+ Negative A 3772137529) KETONES (test code = Negative Negative 6728279310) PROTEIN (test code = 30 mg/dL Negative A 2887-8) UROBILIN (test code = Normal Normal 2125261532) BILIRUBIN (test code = Negative Negative 2168236079) NITRITE (test code = Negative Negative 1118275964) LEUK CATHY (test code = 250/uL Negative A 5596901456) RBC/HPF (test code = >182 See_Comment H [Autom ated message] 3386889756) The system [employer] generated this result transmitted ref erence range: 0 - 3 HP F. The reference range was not used to int erpret this result as normal/abnormal . WBC/HPF (test code = See_Comment H [Autom ated message] 8331739835) The system [employer] generated this result transmitted ref erence range: 0 - 5 HP F. The reference range was not used to int erpret this result as normal/abnormal . BACTERIA (test code = Few Negative A 8569971239) MUCOUS (test code = Marked Negative LPF A 2890887261) SQ EPITH (test code = HPF 0019770506) Lab Interpretation (test Abnormal code = 74356-2) [facility]OLIC PANEL (34390)2019-10-12 23:49:00 Test Item Value Reference Range Interpretation Comments NA (test code = 138 mmol/L 135-145 2296261311) K (test code = 3.6 mmol/L 3.5-5 0156035086) CL (test code = 108 mmol/L 98-108 3005105782) CO2 TOTAL (test code = 22 mmol/L 23-31 L 0304668753) AGAP (test code = 2-16 5533508982) BUN (test code = 9 mg/dL 7-23 1516816063) GLUCOSE (test code = 111 mg/dL 70-110 H 2922385229) CREATININE (test code = 0.65 mg/dL 0.5-1.04 8335515949) TOTAL BILI (test code = 0.6 mg/dL 0.1-1.2 9468156409) CALCIUM (test code = 10.1 mg/dL 8.6-10.6 4080076021) T PROTEIN (test code = 8.3 g/dL 6.3-8.2 H 9646033093) ALBUMIN (test code = 4.5 g/dL 3.5-5 7974333570) ALK PHOS (test code = 74 U/L 34-122 0702748928) ALTv (test code = 18 U/L 5-35 1742-6) AST(SGOT) (test code = 23 U/L 13-40 8506230046) eGFR Calculation mL/min/1.73m2 (Non-) (test code = 2655194017) eGFR Calculation mL/min/1.73m2 () (test code = 3338118279) WILFRID (test code = WILFRID) Association of [...] tests). Lab Interpretation Abnormal (test code = 18861-5) [facility] WITH [id number] 23:33:00 Test Item Value Reference Range Interpretation Comments WBC (test code = See_Comment H [Automated 4290-2) message] The sy stem which generated this [...] RDW-SD (test code = 39.5 fL 39-49.9 28374-5) RDW-CV (test code = 12.7 % 12-15.5 788-0) PLT (test code = See_Comment H [Automated 777-3) message] The sy stem which generated this result transmitted reference range : 166 - 358 10*3/ ?L. The reference r denita was not used to interpret this result as normal/abnormal . MPV (test code = 9.0 fL 9.5-12.9 L 33296-7) NRBC/100 WBC (test See_Comment [Automat ed code = 6825921085) message] The system which generated this result transmitted reference range : 0.0 - 10.0 /100 WBCs. The refer ence range was not u sed to interpret th is result as normal/abnormal . NRBC x10^3 (test code <0.01 See_Comment [Auto mated = 0549226733) message] The s ystem which generated this result transmitted reference range : 10*3/?L. The reference range was not used to interpret this result as normal/abnormal . GRAN MAT (NEUT) % 73.2 % (test code = 770-8) IMM GRAN % (test code 0.20 % = 3504792272) LYMPH % (test code = 19.3 % 736-9) MONO % (test code = 5.5 % 5905-5) EOS % (test code = 1.4 % 713-8) BASO % (test code = 0.4 % 706-2) GRAN MAT x10^3(ANC) 8.87 10*3/uL 1.88-7.09 H (test code = 6618603484) IMM GRAN x10^3 (test 0.03 10*3/uL 0-0.06 code = 3750034141) LYMPH x10^3 (test code 2.34 10*3/uL 1.32-3.29 = 731-0) MONO x10^3 (test code 0.67 10*3/uL 0.33-0.92 = 742-7) EOS x10^3 (test code = 0.17 10*3/uL 0.03-0.39 711-2) BASO x10^3 (test code 0.05 10*3/uL 0.01-0.07 = 704-7) Lab Interpretation Abnormal (test code = 63962-2) [facility] [id number] 23:23:00 Test Item Value Reference Range Interpretation Comments POCT PREG (test code = 1605) negative On board controls acceptable with present C Line (test code = 3574) POCT PREG LOT # (test code = 3575) [id number] POCT PREG TEST DATE (test code = 357) Lab Interpretation (test code = Normal 89037-0) [facility]"
[2022-03-03] MEDS ORDERED: HYDROCODONE/CHLORPHEN 5 ML/OSYR ONE (22:17)
[2022-03-03] MEDS ORDERED: IBUPROFEN 400 MG TAB ONE (22:17)
[2022-03-03 23:44] LABS: SARS-COV-2 RT PCR NEGATIVE (NEGATIVE)
[2022-03-04] MEDS ORDERED: OSELTAMIVIR 75 MG CAP PO ONE (00:13)
[2022-03-04] MEDS ORDERED: AMOX/K CLAV 875 MG TAB ONE (00:13)
--- NOTE | 2022-03-04 00:20 | EDPHYS ---
Physician Documentation [facility] Name: Marina Valdivia Age: 41 yrs Sex: Female : 1980 Arrival Date: 03/03/2022 Time: 21:44 Bed 6 Private MD: ED Physician Lito Justice HPI: 03/03 22:05 This 41 yrs old Female presents to ER via Ambulatory with complaints of cp Breathing Difficulty, Headache. 22:05 The patient has shortness of breath with light activity. Associated signs and symptoms: cp Pertinent positives: non-productive cough, nasal congestion, sore throat, Pertinent negatives: chest pain, dizziness, fever, vomiting. Severity of symptoms: in the emergency department the symptoms are unchanged despite home interventions. Historical: - Allergies: 21:53 Sulfa (Sulfonamide Antibiotics); hb - Home Meds: 21:53 lisinopril 20 mg Oral tab 1 tab once daily [Active]; hb - PMHx: 21:53 Hypertensive disorder; hb - PSHx: 21:53 Appendectomy; section; Cholecystectomy; hb - Immunization history:: Adult Immunizations up to date. - Social history:: Smoking status: Patient denies any tobacco usage or history of. ROS: 22:10 Constitutional: Negative for chills, fever, poor PO intake. cp 22:10 Eyes: Negative for injury, pain, redness, and discharge. cp 22:10 ENT: Positive for rhinorrhea, sinus congestion, sore throat, Negative for drainage from ear(s), ear pain, difficulty swallowing, difficulty handling secretions. 22:10 Cardiovascular: Negative for chest pain. 22:10 Respiratory: Positive for cough, "sounds productive", shortness of breath, Negative for wheezing. 22:10 Abdomen/GI: Negative for abdominal pain, nausea, vomiting, and diarrhea. 22:10 Neuro: Positive for headache, Negative for altered mental status, syncope, weakness. 22:10 All other systems are negative. Exam: 22:15 Constitutional: The patient appears in no acute distress, alert, awake, cp non-diaphoretic, non-toxic, well developed, well nourished. 22:15 Head/Face: Normocephalic, atraumatic. cp 22:15 Eyes: Periorbital structures: appear normal, Conjunctiva: normal, no exudate, no injection, Sclera: no appreciated abnormality, Lids and lashes: appear normal, bilaterally. 22:15 ENT: External ear(s): are unremarkable, Ear canal(s): are normal, clear, TM's: erythema, that is mild, bilaterally, Nose: nasal drainage, that is minimal, Mouth: Lips: moist, Oral mucosa: moist, Posterior pharynx: Airway: no evidence of obstruction, patent, Tonsils: with erythema, no exudate, erythema, that is moderate, exudate, is not appreciated, Voice: is normal. 22:15 Neck: ROM/movement: is normal, is supple, no meningismus, no nuchal rigidity. 22:15 Chest/axilla: Inspection: normal. 22:15 Cardiovascular: Rate: normal, Rhythm: regular. 22:15 Respiratory: the patient does not display signs of respiratory distress, Respirations: normal, no use of accessory muscles, no retractions, labored breathing, is not present, Breath sounds: decreased breath sounds, are not appreciated, stridor, is not appreciated, + upper airway congestion. wheezing: is not appreciated. 22:15 Abdomen/GI: Inspection: abdomen appears normal, Palpation: abdomen is soft and non-tender, in all quadrants. 22:15 Skin: no rash present. Vital Signs: 21:52 BP 159 / 92; Pulse 89; Resp 18; Temp 98.7; Pulse Ox 100% on R/A; Weight 97.52 kg; hb Height 5 ft. 2 in. (157.48 cm); Pain 10/10; 22:30 BP 123 / 80; Pulse 88; Resp 16; Pulse Ox 96% on R/A; jb4 03/04 00:00 BP 116 / 73; Pulse 77; Resp 16; Pulse Ox 98% on R/A; jb4 03/03 21:52 Body Mass Index 39.32 (97.52 kg, 157.48 cm) hb MDM: 03/03 21:51 Patient medically screened. cp 03/04 00:20 Data reviewed: vital signs, nurses notes, lab test result(s). cp 00:20 Differential diagnosis: Bronchitis pneumonia, strep throat, influenza, COVID-19. cp Counseling: I had a detailed discussion with the patient and/or guardian regarding: the historical points, exam findings, and any diagnostic results supporting the discharge/admit diagnosis, lab results, to return to the emergency department if symptoms worsen or persist or if there are any questions or concerns that arise at home. 03/03 21:57 Order name: Strep; Complete Time: 23:31 hb 03/03 23:31 Interpretation: Reviewed. cp 03/03 21:57 Order name: COVID-19/FLU A+B; Complete Time: 00:00 hb 03/04 00:00 Interpretation: INFLUENZA A POSITIVE; Reviewed. cp Administered Medications: 03/03 22:17 Drug: Tussionex Pennkinetic ER (chlorpheniramine-hydrocodone) Suspension 5 ml Route: PO;jb4 23:00 Follow up: Response: No adverse reaction; Marked relief of symptoms; Pain is decreased jb4 22:17 Drug: Ibuprofen 800 mg Route: PO; jb4 23:00 Follow up: Response: No adverse reaction; Marked relief of symptoms 4 03/04 00:15 Drug: Augmentin (Amoxicillin-Clavulanate) 875 mg Route: PO; jb4 00:25 Follow up: Response: No adverse reaction aa9 00:15 Drug: Tamiflu (oseltamivir) 75 mg Route: PO; jb4 00:25 Follow up: Response: No adverse reaction aa9 Disposition: 04:27 Co-signature as Attending Physician, Lito Justice MD. rn Disposition Summary: 03/04/22 00:20 Discharge Ordered Location: Home cp Problem: new cp Symptoms: have improved cp Condition: Stable cp Diagnosis - Streptococcal pharyngitis cp - Influenza due to identified novel influenza A virus with other respiratory cp manifestations Followup: cp - With: Private Physician - When: 2 - 3 days - Reason: Worsening of condition Discharge Instructions: - Influenza, Adult cp - Strep Throat, Adult cp - Discharge Summary Sheet jb4 Forms: - Work release form jb4 - Medication Reconciliation Form cp - Thank You Letter cp - Antibiotic Education cp - Prescription Opioid Use cp Prescriptions: - Augmentin 875-125 mg Oral Tablet - take 1 tablet by ORAL route every 12 hours for 10 days; 20 tablet; Refills: 0, cp Product Selection Permitted - Ibuprofen 800 mg Oral Tablet - take 1 tablet by ORAL route every 8 hours As needed take with food; 30 tablet; cp Refills: 0, Product Selection Permitted - Tamiflu 75 mg Oral Capsule - take 1 capsule by ORAL route every 12 hours for 5 days; 10 capsule; Refills: 0, cp Product Selection Permitted Signatures: Dispatcher [employer] Lito Rodriguez MD MD rn Derrick Kendall PA PA cp Baxter, Heather, RN RN Cristopher Pitts RN RN jb4 Enriqueta Monahan RN aa9 Corrections: (The following items were deleted from the chart) 00:00 00:00 Reviewed. cp cp
--- NOTE | 2022-03-04 00:20 | ER ---
Nurse's Notes [facility] Name: Marina Valdivia Age: 41 yrs Sex: Female : 1980 Arrival Date: 03/03/2022 Time: 21:44 Bed 6 Private MD: Diagnosis: Streptococcal pharyngitis;Influenza due to identified novel influenza A virus with other respiratory manifestations Presentation: 03/03 21:52 Chief complaint: Headache, body aches, sore throat, chills, nausea, and sinus hb congestion x 2 days, mild SOB today. Multiple family members recently sick with the flu. Coronavirus screen: Client presents with at least one sign or symptom that may indicate coronavirus-19. Provider contacted for isolation considerations. Ebola Screen: No symptoms or risks identified at this time. Initial Sepsis Screen: Does the patient meet any 2 criteria? No. Patient's initial sepsis screen is negative. Does the patient have a suspected source of infection? No. Patient's initial sepsis screen is negative. Risk Assessment: Do you want to hurt yourself or someone else? Patient reports no desire to harm self or others. Onset of symptoms was March 02, 2022. 21:52 Method Of Arrival: Ambulatory hb 21:52 Acuity: RE 4 hb Triage Assessment: 03/04 00:28 General: Appears in no apparent distress. Respiratory: Reports cough that is Onset: The aa9 symptoms/episode began/occurred gradually, the patient has mild shortness of breath. Historical: - Allergies: 03/03 21:53 Sulfa (Sulfonamide Antibiotics); hb - Home Meds: 21:53 lisinopril 20 mg Oral tab 1 tab once daily [Active]; hb - PMHx: 21:53 Hypertensive disorder; hb - PSHx: 21:53 Appendectomy; section; Cholecystectomy; hb - Immunization history:: Adult Immunizations up to date. - Social history:: Smoking status: Patient denies any tobacco usage or history of. Screenin/20 00:27 [facility] ED Fall Risk Assessment (Adult) History of falling in the last 3 months, aa9 including since admission No falls in past 3 months (0 pts). Humpty Dumpty Scale Fall Assessment Tool (age< 18yrs) Age 13 years and above (1 pt) Gender Female (1 pt). Abuse screen: Denies threats or abuse. Denies injuries from another. Nutritional screening: No deficits noted. Tuberculosis screening: No symptoms or risk factors identified. Fall Risk No fall in past 12 months (0 pts). No secondary diagnosis (0 pts). No IV (0 pts). Ambulatory Aid- None/Bed Rest/Nurse Assist (0 pts). Gait- Normal/Bed Rest/Wheelchair (0 pts) Mental Status- Oriented to own ability (0 pts). Total [place] Fall Scale indicates No Risk (0-24 pts). Assessment: 03/03 22:00 General: Appears in no apparent distress. uncomfortable, Behavior is calm, cooperative, jb4 appropriate for age. Pain: Complains of pain in throat, headache. Pain does not radiate. Pain currently is 10 out of 10 on a pain scale. Neuro: Level of Consciousness is awake, alert, obeys commands, Oriented to person, place, time, situation. Cardiovascular: Patient's skin is warm and dry. Respiratory: Airway is patent Respiratory effort is even, unlabored, Respiratory pattern is regular, symmetrical. GI: No signs and/or symptoms were reported involving the gastrointestinal system. : No signs and/or symptoms were reported regarding the genitourinary system. EENT: Throat is clear with gag reflex present. Derm: Skin is intact, Skin is pink, warm \T\ dry. 23:00 Reassessment: Patient appears in no apparent distress at this time. Patient and/or jb4 family updated on plan of care and expected duration. Pain level reassessed. Patient is alert, oriented x 3, equal unlabored respirations, skin warm/dry/pink. 23:56 Reassessment: Patient appears in no apparent distress at this time. Patient and/or jb4 family updated on plan of care and expected duration. Pain level reassessed. Patient is alert, oriented x 3, equal unlabored respirations, skin warm/dry/pink. 03/04 00:28 Cardiovascular: Rhythm is regular. aa9 Vital Signs: 03/03 21:52 BP 159 / 92; Pulse 89; Resp 18; Temp 98.7; Pulse Ox 100% on R/A; Weight 97.52 kg; hb Height 5 ft. 2 in. (157.48 cm); Pain 10/10; 22:30 BP 123 / 80; Pulse 88; Resp 16; Pulse Ox 96% on R/A; jb4 03/04 00:00 BP 116 / 73; Pulse 77; Resp 16; Pulse Ox 98% on R/A; jb4 03/03 21:52 Body Mass Index 39.32 (97.52 kg, 157.48 cm) hb ED Course: 03/03 21:44 Patient arrived in ED. bp1 21:49 Derrick Kendall PA is PHCP. cp 21:49 Lito Justice MD is Attending Physician. cp 21:53 Triage completed. hb 21:53 Arm band placed on. hb 21:58 Enriqueta Monahan, DNAIEL is Primary Nurse. aa9 22:05 COVID-19/FLU A+B Sent. aa9 22:05 Strep Sent. aa9 03/04 00:28 Patient has correct armband on for positive identification. Bed in low position. Adult aa9 w/ patient. 00:28 No provider procedures requiring assistance completed. Patient did not have IV access aa9 during this emergency room visit. Administered Medications: 03/03 22:17 Drug: Tussionex Pennkinetic ER (chlorpheniramine-hydrocodone) Suspension 5 ml Route: PO;jb4 23:00 Follow up: Response: No adverse reaction; Marked relief of symptoms; Pain is decreased jb4 22:17 Drug: Ibuprofen 800 mg Route: PO; jb4 23:00 Follow up: Response: No adverse reaction; Marked relief of symptoms jb4 03/04 00:15 Drug: Augmentin (Amoxicillin-Clavulanate) 875 mg Route: PO; jb4 00:25 Follow up: Response: No adverse reaction aa9 00:15 Drug: Tamiflu (oseltamivir) 75 mg Route: PO; jb4 00:25 Follow up: Response: No adverse reaction aa9 Medication: 00:28 VIS not applicable for this client. aa9 Outcome: 00:20 Discharge ordered by . cp 00:26 Patient left the ED. aa9 00:28 Discharged to home ambulatory, with family. aa9 00:28 Condition: stable 00:28 Discharge instructions given to patient, family, Instructed on discharge instructions, follow up and referral plans. medication usage, Demonstrated understanding of instructions, follow-up care, medications, Prescriptions given X 3. Signatures: Derrick Kendall PA PA cp Yeni Carvajal RN RN Cristopher Lopez RN RN jb4 Ting Daugherty Aylin, RN RN aa9
[2022-03-04 01:11] VITALS: TEMP 98.7
[2022-03-04 01:13] VITALS: BP 116/73; O2SAT 98
== END 2022-03-04 00:26 | disposition home or self-care (01) ==
LOC: ER 21:41
DX: J10.1 Influenza due to other identified influenza virus with other respiratory manifestations (principal); J02.0 Streptococcal pharyngitis; I10 Essential (primary) hypertension; Z20.822 Contact with and (suspected) exposure to COVID-19; Z88.2 Allergy status to sulfonamides
CPT/HCPCS: 0240U; 87081; 99283